=== PATIENT | female | born 1995 | race Caucasian/White ===

== ENCOUNTER 2017-09-25 11:24 | Emergency (ER) | payer OTHER ==
[2017-09-25] MEDS ORDERED: ACETAMINOPHEN TAB 500 MG TAB PO STA (12:05)
[2017-09-25] MEDS ORDERED: PHENAZOPYRIDINE 200 MG TAB PO STA (12:06)
[2017-09-25] MEDS ORDERED: ONDANSETRON 4 MG/2 ML VIAL IVP STA (12:06)
--- NOTE | 2017-09-25 12:16 | ED ---
General Adult HPI - General Chief complaint: Abdominal Pain Stated complaint: poss uti Time Seen by Provider: 09/25/17 11:46 Source: patient Mode of arrival: ambulatory Limitations: no limitations - History of Present Illness Initial comments: This is a 21-year-old female no past medical history who presents emergency department for generalized body aches, fevers, chills, urinary frequency and dysuria and lower back pain for the last week. The patient states that the symptoms have progressed and gotten worse. She states that now she is developing fevers and decided come emergency department. She does not have a history of urinary tract infection. She denies any vaginal bleeding or discharge. States that she is sexually active however does not of a history of sexually transmitted diseases. She denies any cough or shortness of breath. No runny nose or sore throat. No other acute complaints. - Related Data Previous Rx's Medication Instructions Recorded Sulfamethox-Tmp 800-160Mg [Bactrim 1 tab PO Q12HR #14 tab 09/25/17 DS 800-160 mg] Allergies Allergy/AdvReac Type Severity Reaction Status Date / Time No Known Allergies Allergy Verified 09/25/17 12:22 Review of Systems ROS Statement: Those systems with pertinent positive or pertinent negative responses have been documented in the HPI. ROS Other: All systems not noted in ROS Statement are negative. Past Medical History Past Medical History: No Reported History History of Any Multi-Drug Resistant Organisms: None Reported Past Surgical History: No Surgical Hx Reported Past Anesthesia/Blood Transfusion Reactions: No Reported Reaction Past Psychological History: ADD/ADHD, Anxiety Smoking Status: Current some day smoker Past Drug Use History: None Reported - Past Family History Mother Family Medical History: Hypertension General Exam - General Exam Comments Initial Comments: Constitutional: Awake alert Appears comfortable Head: Normocephalic atraumatic Eyes: no conjunctival injection No scleral icterus EOMI ENT: TMs clear bilaterally, oropharynx is nonerythematous Neck: No JVD Supple Heart: Regular rate rhythm normal S1-S2 no murmurs Lungs: Clear to auscultation bilaterally No wheezing No rales Abdomen: Soft nondistended there is tenderness to palpation in the suprapubic region without rebound or guarding, no CVA tenderness Extremities: Non edematous DP pulses intact Radial pulses intact Neuro: A&Ox3 No focal neurologic deficits Psych: Appropriate mood and affect Limitations: no limitations Course Vital Signs 09/25/17 09/25/17 11:35 13:15 Temperature 101.5 F H 99.7 F H Pulse Rate 122 H 85 Respiratory 20 16 Rate Blood Pressure 97/44 112/57 O2 Sat by Pulse 95 96 Oximetry Medical Decision Making - Medical Decision Making Is a 21-year-old female came in for dysuria and fever. The patient was found have a urinary tract infection. Urine culture was sent. Given 1 dose of Rocephin in the emergency department. The rest her blood work was unremarkable. Patient felt much improved after medications given in the ER. The patient will be discharged home on Bactrim twice a day for 7 days. Needs close follow-up with her primary doctor. If she has worsening or recurring symptoms she was instructed to return the emergency Department. All questions were answered. - Lab Data Result diagrams: 09/25/17 12:20 09/25/17 12:20 Lab Results 09/25/17 09/25/17 09/25/17 Range/Units 12:05 12:05 12:20 WBC (4.0-11.0) k/uL RBC (3.80-5.40) m/uL Hgb (11.4-16.0) gm/dL Hct (34.0-46.0) % MCV (80.0-100.0) fL MCH (25.0-35.0) pg MCHC (31.0-37.0) g/dL RDW (11.5-15.5) % Plt Count (150-450) k/uL Neutrophils % % Lymphocytes % % Monocytes % % Eosinophils % % Basophils % % Neutrophils # (1.3-7.7) k/uL Lymphocytes # (1.0-4.8) k/uL Monocytes # (0-1.0) k/uL Eosinophils # (0-0.7) k/uL Basophils # (0-0.2) k/uL Sodium (137-145) mmol/L Potassium (3.5-5.1) mmol/L Chloride (98-107) mmol/L Carbon Dioxide (22-30) mmol/L Anion Gap mmol/L BUN (7-17) mg/dL Creatinine (0.52-1.04) mg/dL Est GFR (CKD-EPI)AfAm (>60 ml/min/1.73 sqM) Est GFR (CKD-EPI)NonAf (>60 ml/min/1.73 sqM) Glucose (74-99) mg/dL Plasma Lactic Acid [place] (0.7-2.0) mmol/L Calcium (8.4-10.2) mg/dL Total Bilirubin (0.2-1.3) mg/dL AST (14-36) U/L ALT (9-52) U/L Alkaline Phosphatase (38-126) U/L Total Protein (6.3-8.2) g/dL Albumin (3.5-5.0) g/dL Urine Color Yellow Urine Appearance Turbid H (Clear) Urine pH 5.5 (5.0-8.0) Ur Specific [place] 1.020 (1.001-1.035) Urine Protein 3+ H (Negative) Urine Glucose (UA) Negative (Negative) Urine Ketones 1+ H (Negative) Urine Blood Moderate H (Negative) Urine Nitrite Positive H (Negative) Urine Bilirubin Negative (Negative) Urine Urobilinogen <2.0 (<2.0) mg/dL Ur Leukocyte Esterase Large H (Negative) Urine RBC 118 H (0-5) /hpf Urine WBC >182 H (0-5) /hpf Urine WBC Clumps Many H (None) /hpf Urine Bacteria Rare H (None) /hpf Urine Mucus Many H (None) /hpf Urine HCG, Qual Not Detected (Not Detectd) Influenza Type A RNA Not Detected (Not Detectd) Influenza Type B (PCR) Not Detected (Not Detectd) 09/25/17 09/25/17 09/25/17 Range/Units 12:20 12:20 12:20 WBC 11.0 (4.0-11.0) k/uL RBC 4.33 (3.80-5.40) m/uL Hgb 12.3 (11.4-16.0) gm/dL Hct 35.1 (34.0-46.0) % MCV 81.2 (80.0-100.0) fL MCH 28.3 (25.0-35.0) pg MCHC 34.9 (31.0-37.0) g/dL RDW 12.6 (11.5-15.5) % Plt Count 230 (150-450) k/uL Neutrophils % 94 % Lymphocytes % 2 % Monocytes % 3 % Eosinophils % 1 % Basophils % 0 % Neutrophils # 10.3 H (1.3-7.7) k/uL Lymphocytes # 0.2 L (1.0-4.8) k/uL Monocytes # 0.3 (0-1.0) k/uL Eosinophils # 0.1 (0-0.7) k/uL Basophils # 0.0 (0-0.2) k/uL Sodium 141 (137-145) mmol/L Potassium 4.1 (3.5-5.1) mmol/L Chloride 103 (98-107) mmol/L Carbon Dioxide 23 (22-30) mmol/L Anion Gap 15 mmol/L BUN 12 (7-17) mg/dL Creatinine 0.70 (0.52-1.04) mg/dL Est GFR (CKD-EPI)AfAm >90 (>60 ml/min/1.73 sqM) Est GFR (CKD-EPI)NonAf >90 (>60 ml/min/1.73 sqM) Glucose 127 H (74-99) mg/dL Plasma Lactic Acid [place] 1.3 (0.7-2.0) mmol/L Calcium 9.4 (8.4-10.2) mg/dL Total Bilirubin 0.9 (0.2-1.3) mg/dL AST 16 (14-36) U/L ALT 17 (9-52) U/L Alkaline Phosphatase 67 (38-126) U/L Total Protein 6.8 (6.3-8.2) g/dL Albumin 3.9 (3.5-5.0) g/dL Urine Color Urine Appearance (Clear) Urine pH (5.0-8.0) Ur Specific [place] (1.001-1.035) Urine Protein (Negative) Urine Glucose (UA) (Negative) Urine Ketones (Negative) Urine Blood (Negative) Urine Nitrite (Negative) Urine Bilirubin (Negative) Urine Urobilinogen (<2.0) mg/dL Ur Leukocyte Esterase (Negative) Urine RBC (0-5) /hpf Urine WBC (0-5) /hpf Urine WBC Clumps (None) /hpf Urine Bacteria (None) /hpf Urine Mucus (None) /hpf Urine HCG, Qual (Not Detectd) Influenza Type A RNA (Not Detectd) Influenza Type B (PCR) (Not Detectd) Disposition Clinical Impression: UTI (urinary tract infection) Disposition: HOME SELF-CARE Condition: Stable Instructions: Urinary Tract Infection in Women (ED) Prescriptions: Sulfamethox-Tmp 800-160Mg [Bactrim DS 800-160 mg] 1 tab PO Q12HR #14 tab Referrals: Carlo Zamora DO [Primary Care Provider] - 1-2 days
[2017-09-25 12:26] LABS: Appearance,Urine Turbid (Clear); Bacteria,Urine Rare /hpf; Bilirubin,Urine Negative (Negative); Blood,Urine Moderate (Negative); Color,Urine Yellow; Glucose,Urine (UA) Negative (Negative); Ketones,Urine 1+ (Negative); Leukocyte Esterase,Urine Large (Negative); Mucus,Urine Many /hpf; Nitrite,Urine Positive (Negative); PH, Urine 5.5 (5.0-8.0); Protein,Urine 3+ (Negative); RBC,Urine 118 /hpf (0-5); Urobilinogen,Urine <2.0 mg/dL (<2.0); WBC,Urine >182 /hpf (0-5)
[2017-09-25 12:34] LABS: Basophils % (A) 0 %; Eosinophils # (A) 0.1 k/uL (0-0.7); Eosinophils % (A) 1 %; HCT 35.1 % (34.0-46.0); HGB 12.3 gm/dL (11.4-16.0); Lymphocytes # (A) 0.2 k/uL (1.0-4.8); Lymphocytes % (A) 2 %; MCH 28.3 pg (25.0-35.0); MCHC 34.9 g/dL (31.0-37.0); MCV 81.2 fL (80.0-100.0); Monocytes # (A) 0.3 k/uL (0-1.0); Monocytes % (A) 3 %; Neutrophils # (A) 10.3 k/uL (1.3-7.7); Neutrophils % (A) 94 %; Platelet Count 230 k/uL (150-450); RBC 4.33 m/uL (3.80-5.40); RDW 12.6 % (11.5-15.5)
[2017-09-25] MEDS: SODIUM CHLORIDE 0.9% 500 ML IV SCH ×2 (12:34→13:11)
[2017-09-25 12:42] LABS: AST 16 U/L (14-36); Albumin 3.9 g/dL (3.5-5.0); Alkaline Phosphatase 67 U/L (38-126); Anion Gap 15 mmol/L; Blood Urea Nitrogen 12 mg/dL (7-17); Calcium 9.4 mg/dL (8.4-10.2); Carbon Dioxide 23 mmol/L (22-30); Chloride 103 mmol/L (98-107); Glucose 127 mg/dL (74-99); Potassium 4.1 mmol/L (3.5-5.1); Sodium 141 mmol/L (137-145); Total Bilirubin 0.9 mg/dL (0.2-1.3); Total Protein 6.8 g/dL (6.3-8.2)
[2017-09-25 12:43] LABS: ALT 17 U/L (9-52)
[2017-09-25] MEDS ORDERED: cefTRIAXone IN SWFI 1,000 MG/10 ML SYRINGE IVP STA (12:52)
[2017-09-25 13:16] VITALS: BP 112/57; PULSE 85; RESP 16; TEMP 99.7
== END 2017-09-25 13:51 | disposition home or self-care (01) ==
LOC: EC 11:24
DX: N39.0 Urinary tract infection, site not specified (principal); F17.200 Nicotine dependence, unspecified, uncomplicated
CPT/HCPCS: 99284; 96374; 96375; 96361; 36415; 80053; 83605; 85025; 81001; 81025; 87040; 87086; 87077; 87186; 87502; J2405; J0696

== ENCOUNTER → 2018-02-25 | Day surgery (SDC) | payer OTHER ==
[2018-02-23 13:58] VITALS: BMI 24.7
[~2018-02-25] MED LIST: DEXAMETHASONE SOD PHOSPHATE 10 MG/ML 1 ML VIAL IV ONE; HYDROcodone/APAP 5-325MG 1 EACH TAB PO PRN; HYDROmorphone 1 MG/ML 1 ML SYRINGE IVP PRN; LACTATED RINGERS 1,000 ML IV SCH; LIDOCAINE 1% 20 ML VIAL (10MG/ML) FOR IV START INTRADERMA ONE; LIDOCAINE 1% INJ 10MG/ML (20 ML MDV) ONE; MIDAZOLAM 2 MG/2 ML VIAL IV PRN; MIDAZOLAM 2 MG/2 ML VIAL ONE; ONDANSETRON 4 MG/2 ML VIAL IVP ONE; ONDANSETRON 4 MG/2 ML VIAL IVP PRN; PROPOFOL 10 MG/ML 20 ML VIAL IV ONE; ROPIVACAINE 5 MG/ML 30 ML VIAL MISCELLANE ONE; SCOPOLAMINE 1.5MG/72HR PATCH TRANSDERM ONE; SUCCINYLCHOLINE CHLORIDE 100 MG/5 ML SYR IV ONE; ceFAZolin IN SWFI 2 GM/20 ML SYRINGE IVP ONE; fentaNYL (PF) 50 MCG/ML 2 ML AMP IV PRN; fentaNYL (PF) 50 MCG/ML 2 ML AMP ONE
--- NOTE | 2018-02-25 14:00 | P.OP ---
Date of Procedure: 02/25/18 Preoperative Diagnosis: 1. Right accessory navicular Postoperative Diagnosis: Same Procedure(s) Performed: 1. Excision of right accessory navicular bone, right 2. Repair of posterior tibial tendon to bone, right Anesthesia: VIRGIL Surgeon: Ortega Aguilar Line Out Worker #1: Anup Salazar Estimated Blood Loss (ml): 5 IV fluids (ml): 500 Pathology: none sent Condition: stable Disposition: PACU Indications for Procedure: The patient is a previously healthy 22-year-old female who presented to my office with a painful bump on the inside of her foot. Her clinical exam and x- rays were consistent with an accessory navicular. An MRI was obtained. We discussed continued nonsurgical treatment versus surgery. We discussed excision and posterior tibial tendon repair versus open reduction and screw fixation across the synchondrosis. Since the patient's main complaint is the bump on the inner aspect of her foot she requested an excision. We discussed potential risks and Indications of surgery including but not limited to risk of anesthesia, risk of superficial infection, risk of deep infection, risk of delayed wound healing, risk of damage to local blood vessel or nerves, risk of intraoperative fracture, risk of postoperative fracture, risk of posterior tibial tendon repair failure, risk of progressive flatfoot deformity, risk of chronic pain, risk of chronic swelling, risk of generalized to satisfaction surgery, risk of need for further surgery, DVT, PE, and possibly loss of life or limb. The patient and her mom provided their verbal and written consent to go forward with surgery. Description of Procedure: The patient was identified in preoperative holding and the correct right leg was marked with my initials. I reviewed the consent form with the patient and her mom. All their questions were answered. The patient was then brought back to the operating room by anesthesia. She was positioned on the or table where a general anesthetic and preoperative antibiotics were administered. A tourniquet was applied to the proximal aspect of the right leg. All bony prominences were well-padded. Posterior and surgery timeout was performed identifying the correct patient, operative extremity, and procedure. The patient's leg was then elevated, exsanguinated with an Esmarch bandage, and the tourniquet was inflated to 250 mmHg. I began by outlining an incision over the distal posterior tibial tendon to the level of the navicular tuberosity. Skin incision was made a scalpel and dissection was carried down to the posterior tibial tendon sheath which was opened sharply. The synchondrosis between the accessory navicular and navicular tuberosity was identified with fluoroscopy. An osteotome was used to develop the interval. The accessory navicular was then sharply removed from the posterior tibial tendon. The plantar fibers of the posterior tibial tendon remained intact to the navicular body. Once the accessory navicular been excised a 3.5 mm suture anchor was placed into the navicular body using fluoroscopy to verify the position of the suture anchor was extra-articular. The suture anchor was then gently tapped and screwed into place. The posterior tibial tendon was then repaired down to bone while an pathologist assistant held the foot in slight inversion. The posterior tibial tendon was nicely reapproximated with a jarvis repair. Final fluoroscopic images were taken. The wound was copiously irrigated. The sheath was closed with a running 0 Vicryl. The deep subcu was reapproximated using 3-0 Monocryl. The skin was closed with 3-0 nylon horizontal mattress stitches. Tendon also Percent Marcaine was injected around the incision. The tourniquet was let down. A sterile dressing consisting of Betadine soaked Adaptic, 4 x 4, and web roll was applied. The patient was then placed in a well-padded bulky Angel splint with the ankle in neutral. The patient was then awoken from her anesthetic, transferred to a gurney, and brought to PACU without procedure well. Anup Salazar PA-C was required is a skilled pathologist assistant for patient positioning, surgical exposure, closure of wound, and application of splint.
[2018-02-25 14:23] VITALS: TEMP 97.3
--- NOTE | 2018-02-25 16:36 | XR ---
EXAMINATION TYPE: XR ankle limited RT, [place] guidance operating room DATE OF EXAM: 02/25/2018 COMPARISON: NONE HISTORY: 22-year-old female assess for navicular right ankle FINDINGS: 2 images of the ankle/hindfoot showing some surgical material at the medial navicular. FLUOROSCOPY Fluoroscopy time of 10 seconds was used during foot intervention. 2 image/s document/s the procedure . IMPRESSION: Fluoroscopy as above.
[2018-02-25 17:09] VITALS: BP 111/69; PULSE 83; RESP 18
== END | disposition home or self-care (01) ==
LOC: OR 10:55
PROVIDERS: ATTEND Orthopaedic Surgery
DX: Q74.2 Other congenital malformations of lower limb(s), including pelvic girdle (principal)
CPT/HCPCS: 73600; 28238; J2250; J1100; J2405; J2001; J3010; J2795; J0330; J2704; J0690; 81025

== ENCOUNTER 2021-01-25 23:06 | Emergency (ER) | payer OTHER ==
[2021-01-25 23:09] VITALS: RESP 18; TEMP 100.2
[2021-01-25] MEDS ORDERED: ONDANSETRON 4 MG/2 ML VIAL IVP STA (23:20)
[2021-01-25] MEDS ORDERED: SODIUM CHLORIDE 0.9% 1,000 ML IV STA (23:20)
[2021-01-25] MEDS ORDERED: IBUPROFEN 600 MG TAB PO STA (23:21)
[2021-01-25 23:48] LABS: Basophils % (A) 0 %; Eosinophils # (A) 0.2 k/uL (0-0.7); Eosinophils % (A) 1 %; HCT 37.7 % (34.0-46.0); Lymphocytes # (A) 0.8 k/uL (1.0-4.8); Lymphocytes % (A) 6 %; MCH 30.1 pg (25.0-35.0); MCHC 34.5 g/dL (31.0-37.0); MCV 87.2 fL (80.0-100.0); Mean Platelet Volume 7.7; Monocytes # (A) 0.9 k/uL (0-1.0); Monocytes % (A) 6 %; Neutrophils # (A) 12.2 k/uL (1.3-7.7); Neutrophils % (A) 86 %; Platelet Count 205 k/uL (150-450); RBC 4.32 m/uL (3.80-5.40); RDW 12.3 % (11.5-15.5); WBC 14.2 k/uL (3.8-10.6)
[2021-01-25 23:57] LABS: ALT 18 U/L (4-34); AST 25 U/L (14-36); African American GFR (CKD) >90 (>60 ml/min/1.73 sqM); Alkaline Phosphatase 79 U/L (38-126); Amylase 35 U/L (30-110); Anion Gap 10 mmol/L; Blood Urea Nitrogen 7 mg/dL (7-17); Calcium 9.1 mg/dL (8.4-10.2); Carbon Dioxide 20 mmol/L (22-30); Chloride 104 mmol/L (98-107); Glucose 115 mg/dL (74-99); Lipase <10 U/L (23-300); Non-African American GFR(CKD) >90 (>60 ml/min/1.73 sqM); Sodium 134 mmol/L (137-145); Total Bilirubin 0.7 mg/dL (0.2-1.3); Total Protein 6.8 g/dL (6.3-8.2)
[2021-01-26 00:11] LABS: Appearance,Urine Turbid (Clear); Bacteria,Urine Rare /hpf; Bilirubin,Urine Negative (Negative); Blood,Urine Small (Negative); Color,Urine Yellow; Glucose,Urine (UA) Negative (Negative); Ketones,Urine 1+ (Negative); Leukocyte Esterase,Urine Large (Negative); Mucus,Urine Few /hpf; Nitrite,Urine Positive (Negative); PH, Urine 6.5 (5.0-8.0); Protein,Urine 2+ (Negative); RBC,Urine 32 /hpf (0-5); Specific Gravity,Urine 1.016 (1.001-1.035); Squamous Epithelial Cell,Urine 2 /hpf (0-4); WBC,Urine >182 /hpf (0-5)
--- NOTE | 2021-01-26 00:51 | CT ---
EXAMINATION TYPE: CT abdomen pelvis w con DATE OF EXAM: 01/26/2021 COMPARISON: None HISTORY: Flank pain CT DLP: 1252.2 mGycm Automated exposure control for dose reduction was used. CONTRAST: Performed with IV Contrast, patient injected with 100 mL of Isovue 300. Images obtained from the diaphragm to the floor the pelvis with IV contrast. Lung bases are clear. There is no pleural effusion. Heart size is normal. There is no pericardial eff usion. Liver spleen stomach pancreas gallbladder appear normal. The bile ducts are not dilated. There is small area of decreased enhancement upper pole left kidney. Delayed images show normal renal excr etion. The kidneys have normal size and contour. There is no hydronephrosis. Ureters are not dilated. Bladder distends smoothly. There is no inguinal hernia. Appendix appears normal. There is no free fl uid in the pelvis. There is no evidence of a pelvic mass. Uterus is retroverted. Lumbar vertebra have normal spacing and alignment. Posterior elements are intact. There is no compression fracture. The b david pelvis is intact. The hip joints are intact. There is no hip dysplasia. There is no mesenteric edema. There is no ascites or free air. There is no bowel obstruction. IMPRESSION: There is 2 cm area of decreased enhancement upper pole left kidney. This could be focal pyelonephriti s. No renal obstruction. Normal appendix.
[2021-01-26] MEDS ORDERED: cefTRIAXone IN SWFI 1,000 MG/10 ML SYRINGE IVP STA (00:53)
--- NOTE | 2021-01-26 00:53 | ED ---
Female Urogenital HPI - General Chief complaint: Urogenital Stated complaint: Poss UTI Time Seen by Provider: 01/25/21 23:12 Source: patient, RN notes reviewed Mode of arrival: ambulatory Limitations: no limitations - History of Present Illness Initial comments: Patient is a 25-year-old female that presents to the emergency department complaining of urinary frequency dysuria and a mild fever with some nausea and vomiting. She notes that she has had small bouts of emesis but unsure of the amount. She notes that she does have a history of UTIs and kidney infections. She notes this feels similar. She notes that this is been going on for 1-2 days. She did appear to be in some mild discomfort while sitting in bed during the exam interview. She denied taking any Tylenol or Motrin at home for fever. She was otherwise a well-appearing 25-year-old female. She denied any chest pain shortness of breath headache diarrhea constipation fatigue. Last Menstrual Period: 01/20/21 - Related Data Previous Rx's Medication Instructions Recorded Aspirin 325 mg PO BID #28 tab 02/25/18 Docusate [Colace] 100 mg PO BID #28 capsule 02/25/18 Docusate [Colace] 100 mg PO DAILY #20 capsule 02/25/18 HYDROcodone/APAP 5-325MG [[place] 1 - 2 tab PO Q6HR PRN #40 tab 02/25/18 5-325] Ciprofloxacin HCl [Cipro] 500 mg PO Q12HR #20 tablet 01/26/21 Ondansetron Odt [Zofran Odt] 4 mg PO Q8HR PRN #10 tab 01/26/21 Allergies Allergy/AdvReac Type Severity Reaction Status Date / Time No Known Allergies Allergy Verified 01/25/21 23:09 Review of Systems ROS Statement: Those systems with pertinent positive or pertinent negative responses have been documented in the HPI. ROS Other: All systems not noted in ROS Statement are negative. Past Medical History Past Medical History: No Reported History History of Any Multi-Drug Resistant Organisms: None Reported Past Surgical History: No Surgical Hx Reported Past Anesthesia/Blood Transfusion Reactions: No Reported Reaction Additional Past Anesthesia/Blood Transfusion Reaction / Comment(s): no anesthesia Past Psychological History: ADD/ADHD, Anxiety Smoking Status: Current every day smoker Past Alcohol Use History: None Reported Past Drug Use History: None Reported - Past Family History Mother Family Medical History: Hypertension General Exam Limitations: no limitations General appearance: alert, in no apparent distress Head exam: Present: atraumatic, normocephalic, normal inspection Eye exam: Present: normal appearance, PERRL, EOMI. Absent: scleral icterus, conjunctival injection, periorbital swelling Neck exam: Present: normal inspection Respiratory exam: Present: normal lung sounds bilaterally. Absent: respiratory distress, wheezes, rales, rhonchi, stridor Cardiovascular Exam: Present: regular rate, normal rhythm, normal heart sounds. Absent: systolic murmur, diastolic murmur, rubs, gallop, clicks GI/Abdominal exam: Present: soft, normal bowel sounds. Absent: distended, tenderness, guarding, rebound, rigid Extremities exam: Present: normal inspection, full ROM, normal capillary refill. Absent: tenderness, pedal edema, joint swelling, calf tenderness Neurological exam: Present: alert, oriented X3 Psychiatric exam: Present: normal affect, normal mood Skin exam: Present: warm, dry, intact, normal color. Absent: rash Course Vital Signs 01/25/21 23:07 Temperature 100.2 F H Pulse Rate 106 H Respiratory 18 Rate Blood Pressure 118/78 O2 Sat by Pulse 98 Oximetry Medical Decision Making - Medical Decision Making 25-year-old female with urinary frequency dysuria and a fever with some nausea for 1-2 days. Labs, CT of the abdomen and pelvis, 1 L normal saline, 4 mg of Zofran, 600 mg of Motrin ordered. Labs: Leukocytosis at 14-1/2, urinalysis shows urinary tract infection with greater than 182 white blood cells. 1 g of Rocephin ordered. Computed tomography scan shows focal pyelonephritis. Case discussed with Dr. Longoria, patient discharge home with close follow-up to primary care. - Lab Data Result diagrams: 01/25/21 23:26 01/25/21 23:26 Lab Results 01/25/21 01/25/21 01/25/21 Range/Units 23:20 23:26 23:26 WBC 14.2 H (3.8-10.6) k/uL RBC 4.32 (3.80-5.40) m/uL Hgb 13.0 (11.4-16.0) gm/dL Hct 37.7 (34.0-46.0) % MCV 87.2 (80.0-100.0) fL MCH 30.1 (25.0-35.0) pg MCHC 34.5 (31.0-37.0) g/dL RDW 12.3 (11.5-15.5) % Plt Count 205 (150-450) k/uL MPV 7.7 Neutrophils % 86 % Lymphocytes % 6 % Monocytes % 6 % Eosinophils % 1 % Basophils % 0 % Neutrophils # 12.2 H (1.3-7.7) k/uL Lymphocytes # 0.8 L (1.0-4.8) k/uL Monocytes # 0.9 (0-1.0) k/uL Eosinophils # 0.2 (0-0.7) k/uL Basophils # 0.0 (0-0.2) k/uL Sodium (137-145) mmol/L Potassium (3.5-5.1) mmol/L Chloride (98-107) mmol/L Carbon Dioxide (22-30) mmol/L Anion Gap mmol/L BUN (7-17) mg/dL Creatinine (0.52-1.04) mg/dL Est GFR (CKD-EPI)AfAm (>60 ml/min/1.73 sqM) Est GFR (CKD-EPI)NonAf (>60 ml/min/1.73 sqM) Glucose (74-99) mg/dL Calcium (8.4-10.2) mg/dL Total Bilirubin (0.2-1.3) mg/dL AST (14-36) U/L ALT (4-34) U/L Alkaline Phosphatase (38-126) U/L Total Protein (6.3-8.2) g/dL Albumin (3.5-5.0) g/dL Amylase (30-110) U/L Lipase (23-300) U/L Urine Color Yellow Urine Appearance Turbid H (Clear) Urine pH 6.5 (5.0-8.0) Ur Specific [place] 1.016 (1.001-1.035) Urine Protein 2+ H (Negative) Urine Glucose (UA) Negative (Negative) Urine Ketones 1+ H (Negative) Urine Blood Small H (Negative) Urine Nitrite Positive H (Negative) Urine Bilirubin Negative (Negative) Urine Urobilinogen 2.0 (<2.0) mg/dL Ur Leukocyte Esterase Large H (Negative) Urine RBC 32 H (0-5) /hpf Urine WBC >182 H (0-5) /hpf Urine WBC Clumps Many H (None) /hpf Ur Squamous Epith Cells 2 (0-4) /hpf Urine Bacteria Rare H (None) /hpf Urine Mucus Few H (None) /hpf Urine HCG, Qual Not Detected (Not Detectd) 01/25/21 Range/Units 23:26 WBC (3.8-10.6) k/uL RBC (3.80-5.40) m/uL Hgb (11.4-16.0) gm/dL Hct (34.0-46.0) % MCV (80.0-100.0) fL MCH (25.0-35.0) pg MCHC (31.0-37.0) g/dL RDW (11.5-15.5) % Plt Count (150-450) k/uL MPV Neutrophils % % Lymphocytes % % Monocytes % % Eosinophils % % Basophils % % Neutrophils # (1.3-7.7) k/uL Lymphocytes # (1.0-4.8) k/uL Monocytes # (0-1.0) k/uL Eosinophils # (0-0.7) k/uL Basophils # (0-0.2) k/uL Sodium 134 L (137-145) mmol/L Potassium 4.0 (3.5-5.1) mmol/L Chloride 104 (98-107) mmol/L Carbon Dioxide 20 L (22-30) mmol/L Anion Gap 10 mmol/L BUN 7 (7-17) mg/dL Creatinine 0.62 (0.52-1.04) mg/dL Est GFR (CKD-EPI)AfAm >90 (>60 ml/min/1.73 sqM) Est GFR (CKD-EPI)NonAf >90 (>60 ml/min/1.73 sqM) Glucose 115 H (74-99) mg/dL Calcium 9.1 (8.4-10.2) mg/dL Total Bilirubin 0.7 (0.2-1.3) mg/dL AST 25 (14-36) U/L ALT 18 (4-34) U/L Alkaline Phosphatase 79 (38-126) U/L Total Protein 6.8 (6.3-8.2) g/dL Albumin 4.0 (3.5-5.0) g/dL Amylase 35 (30-110) U/L Lipase <10 L (23-300) U/L Urine Color Urine Appearance (Clear) Urine pH (5.0-8.0) Ur Specific [place] (1.001-1.035) Urine Protein (Negative) Urine Glucose (UA) (Negative) Urine Ketones (Negative) Urine Blood (Negative) Urine Nitrite (Negative) Urine Bilirubin (Negative) Urine Urobilinogen (<2.0) mg/dL Ur Leukocyte Esterase (Negative) Urine RBC (0-5) /hpf Urine WBC (0-5) /hpf Urine WBC Clumps (None) /hpf Ur Squamous Epith Cells (0-4) /hpf Urine Bacteria (None) /hpf Urine Mucus (None) /hpf Urine HCG, Qual (Not Detectd) - Radiology Data Radiology results: report reviewed, image reviewed CT of the abdomen and pelvis: There is a 2 cm area of decreased enhancement upper pole left kidney. This could be focal pyelonephritis. No renal obstruction. Normal appendix. Disposition Clinical Impression: Pyelonephritis Disposition: HOME SELF-CARE Condition: Stable Instructions (If sedation given, give patient instructions): Urinary Tract Infection in Women (ED) Additional Instructions: Please return to the Emergency Department if symptoms worsen or any other concerns. Take antibiotics as prescribed until complete. Take Tylenol and Motrin alternating every several hours for fever control. Take Zofran as prescribed. Follow-up with primary care in the next 1-2 days. Is patient prescribed a controlled substance at d/c from ED?: No Referrals: Carlo Zamora DO [Primary Care Provider] - 1-2 days Time of Disposition: 01:01
[2021-01-26] MEDS ORDERED: ACETAMINOPHEN TAB 325 MG TAB PO STA (01:01)
[2021-01-26 01:31] VITALS: BP 125/75; PULSE 62
== END 2021-01-26 01:30 | disposition home or self-care (01) ==
LOC: EC 23:06
DX: N12 Tubulo-interstitial nephritis, not specified as acute or chronic (principal); F17.200 Nicotine dependence, unspecified, uncomplicated; Z79.82 Long term (current) use of aspirin; Z79.891 Long term (current) use of opiate analgesic; Z79.899 Other long term (current) drug therapy
CPT/HCPCS: 36415; 80053; 82150; 83690; 85025; 81001; 81025; 87086; 74177; 99284; 96374; 96375; 96361; J2405; J0696; Q9967; 87077; 87186

== ENCOUNTER 2021-04-15 08:31 | Emergency (ER) | payer OTHER ==
[2021-04-15 08:37] VITALS: BP 106/63; PULSE 102; RESP 18; TEMP 98
--- NOTE | 2021-04-15 09:30 | XR ---
EXAMINATION TYPE: XR chest 2V DATE OF EXAM: 04/15/2021 COMPARISON: None HISTORY: 25-year-old female with cough and back pain TECHNIQUE: PA and lateral views FINDINGS: The cardiomediastinal silhouette, aorta, and pulmonary vasculature are within normal limits. There is some mild patchy left basilar opacity. No consolidation or pleural effusion otherwise seen. IMPRESSION: Mild patchy left basilar atelectasis versus early developing infiltrate/pneumonia. Clinically correla te.
--- NOTE | 2021-04-15 09:44 | ED ---
URI HPI - General Chief Complaint: Upper Respiratory Infection Stated Complaint: back pain & cough Time Seen by Provider: 04/15/21 08:42 Source: patient, RN notes reviewed Mode of arrival: ambulatory Limitations: no limitations - History of Present Illness Initial Comments: Patient is a 25-year-old female that presents to the emergency department compla ining of upper respiratory tract symptoms including a dry cough for the past several days. She states that her daughter recently got over an upper respiratory tract infection. Patient notes that she does also have seasonal ALLERGIES in the spring and fall. She notes that she does have moderate sinus nasal drainage. She denied any other issues or complaints at time. She was otherwise well-appearing. She denied chest pain shortness of breath headache nausea vomiting diarrhea constipation fever fatigue chills. - Related Data Home Medications Medication Instructions Recorded Confirmed D-Methorphan/PE/Acetaminophen 2 cap PO Q6H PRN 04/15/21 04/15/21 [Vicks Dayquil Liquicaps] Dm/Acetaminophen/Doxylamine [Vicks 2 cap PO Q6H PRN 04/15/21 04/15/21 Nyquil Liquicaps] Previous Rx's Medication Instructions Recorded Azithromycin [Zithromax Z-pack (6 0 mg PO DIRECTED #6 tab 04/15/21 tabs)] Allergies Allergy/AdvReac Type Severity Reaction Status Date / Time No Known Allergies Allergy Verified 04/15/21 10:01 Review of Systems ROS Statement: Those systems with pertinent positive or pertinent negative responses have been documented in the HPI. ROS Other: All systems not noted in ROS Statement are negative. Past Medical History Past Medical History: No Reported History History of Any Multi-Drug Resistant Organisms: None Reported Past Surgical History: Orthopedic Surgery Past Anesthesia/Blood Transfusion Reactions: No Reported Reaction Additional Past Anesthesia/Blood Transfusion Reaction / Comment(s): no anesthesia Past Psychological History: ADD/ADHD Smoking Status: Current every day smoker Past Alcohol Use History: None Reported Past Drug Use History: None Reported - Past Family History Mother Family Medical History: Hypertension General Exam Limitations: no limitations General appearance: alert, in no apparent distress, obese Head exam: Present: atraumatic, normocephalic, normal inspection Eye exam: Present: normal appearance, PERRL, EOMI. Absent: scleral icterus, conjunctival injection, periorbital swelling ENT exam: Present: normal exam, mucous membranes moist Neck exam: Present: normal inspection Respiratory exam: Present: normal lung sounds bilaterally. Absent: respiratory distress, wheezes, rales, rhonchi, stridor Cardiovascular Exam: Present: regular rate, normal rhythm, normal heart sounds. Absent: systolic murmur, diastolic murmur, rubs, gallop, clicks GI/Abdominal exam: Present: soft, normal bowel sounds. Absent: distended, tenderness, guarding, rebound, rigid Extremities exam: Present: normal inspection, full ROM, normal capillary refill. Absent: tenderness, pedal edema, joint swelling, calf tenderness Neurological exam: Present: alert, oriented X3 Psychiatric exam: Present: normal affect, normal mood Skin exam: Present: warm, dry, intact, normal color. Absent: rash Course Vital Signs 04/15/21 08:31 Temperature 98 F Pulse Rate 102 H Respiratory 18 Rate Blood Pressure 106/63 O2 Sat by Pulse 96 Oximetry Medical Decision Making - Medical Decision Making 25-year-old female with upper respiratory tract symptoms including cough congestion and nasal drainage. Cepheid 4 Plex, chest x-ray ordered. Chest x-ray: Mild patchy left basilar atelectasis versus early developing infiltrate/pneumonia. Cepheid 4 Plex negative. Patient most likely has community-acquired pneumonia. Antibiotics sent to pharmacy. Case discussed with Dr. Barragan, patient discharge home with follow-up primary care. - Lab Data Lab Results 04/15/21 Range/Units 08:58 Influenza Type A (PCR) Not Detected (Not Detectd) Influenza Type B (PCR) Not Detected (Not Detectd) RSV (PCR) Not Detected (Not Detectd) SARS-CoV-2 (PCR) Not Detected (Not Detectd) - Radiology Data Radiology results: report reviewed, image reviewed Chest x-ray: Mild patchy left basilar atelectasis versus early developing infiltrate/pneumonia. Disposition Clinical Impression: Community acquired pneumonia, Postnasal drip Disposition: HOME SELF-CARE Condition: Stable Instructions (If sedation given, give patient instructions): Upper Respiratory Infection (ED) Additional Instructions: Please return to the Emergency Department if symptoms worsen or any other concerns. Follow-up with primary care 1-2 days. Take antibiotics as prescribed until complete. Get plenty rest. Is patient prescribed a controlled substance at d/c from ED?: No Referrals: Carlo Zamora DO [Primary Care Provider] - 1-2 days Time of Disposition: 10:10
== END 2021-04-15 10:30 | disposition home or self-care (01) ==
LOC: EC 08:31
DX: J18.8 Other pneumonia, unspecified organism (principal); R09.82 Postnasal drip; F90.9 Attention-deficit hyperactivity disorder, unspecified type; F17.200 Nicotine dependence, unspecified, uncomplicated; Z20.822 Contact with and (suspected) exposure to COVID-19
CPT/HCPCS: 71046; 87636; 99283

== ENCOUNTER 2022-09-22 07:55 | Emergency (ER) | payer OTHER ==
[2022-09-22] MEDS ORDERED: METOCLOPRAMIDE 5 MG/ML 2 ML VIAL IVP STA (08:15)
[2022-09-22] MEDS ORDERED: diphenhydrAMINE 50 MG/ML 1 ML VIAL IVP STA (08:15)
[2022-09-22] MEDS ORDERED: SODIUM CHLORIDE 0.9% 2,000 ML IV STA (08:15)
[2022-09-22 08:30] VITALS: BP 124/68; PULSE 89; RESP 19; TEMP 98.1
[2022-09-22 08:33] LABS: Basophils % (A) 0 %; Eosinophils # (A) 0.2 k/uL (0-0.7); Eosinophils % (A) 2 %; HCT 37.4 % (34.0-46.0); HGB 13.2 gm/dL (11.4-16.0); Lymphocytes # (A) 1.1 k/uL (1.0-4.8); Lymphocytes % (A) 9 %; MCH 30.2 pg (25.0-35.0); MCHC 35.2 g/dL (31.0-37.0); MCV 85.7 fL (80.0-100.0); Mean Platelet Volume 7.2; Monocytes # (A) 0.3 k/uL (0-1.0); Monocytes % (A) 3 %; Neutrophils % (A) 85 %; Platelet Count 386 k/uL (150-450); RBC 4.37 m/uL (3.80-5.40); WBC 11.7 k/uL (3.8-10.6)
--- NOTE | 2022-09-22 08:41 | ED ---
General Adult HPI - General Stated complaint: vomiting Time Seen by Provider: 09/22/22 08:06 Source: patient, EMS, RN notes reviewed Mode of arrival: EMS Limitations: no limitations - History of Present Illness Initial comments: 26 -year-old female presents to the emergency Department chief complaint nausea vomiting. Patient states she is 13 weeks patient is A0 currently seen Dr. Fairbanks. Patient states that she was hospitalized was discharged states she was doing well up until last couple days started having recheck her current emesis. Patient denies any abdominal pain no vaginal bleeding or vaginal discharge. Patient states she is on an antihistamine and B6 states is not helping. Patient states she feels very dehydrated patient is tearful, state s she cannot tolerate this any longer. - Related Data Home Medications Medication Instructions Recorded Confirmed Pyridoxine HCl (Vitamin B6) 25 mg PO HS 09/22/22 09/22/22 [Pyridoxine HCl] diphenhydrAMINE [Benadryl] 50 mg PO HS 09/22/22 09/22/22 Previous Rx's Medication Instructions Recorded Ondansetron Odt [Zofran Odt] 4 mg PO Q8HR PRN #10 tab 09/22/22 Allergies Allergy/AdvReac Type Severity Reaction Status Date / Time No Known Allergies Allergy Verified 09/22/22 10:18 Review of Systems ROS Statement: Those systems with pertinent positive or pertinent negative responses have been documented in the HPI. ROS Other: All systems not noted in ROS Statement are negative. Past Medical History Past Medical History: No Reported History History of Any Multi-Drug Resistant Organisms: None Reported Past Surgical History: Orthopedic Surgery Additional Past Surgical History / Comment(s): rt ankle Past Anesthesia/Blood Transfusion Reactions: No Reported Reaction Additional Past Anesthesia/Blood Transfusion Reaction / Comment(s): no anesthesia Past Psychological History: ADD/ADHD Smoking Status: Former smoker Past Alcohol Use History: None Reported Past Drug Use History: None Reported - Past Family History Mother Family Medical History: Hypertension General Exam Limitations: no limitations General appearance: alert, in no apparent distress Head exam: Present: atraumatic, normocephalic, normal inspection Eye exam: Present: normal appearance, PERRL, EOMI. Absent: scleral icterus, conjunctival injection, periorbital swelling Respiratory exam: Present: normal lung sounds bilaterally. Absent: respiratory distress, wheezes, rales, rhonchi, stridor Cardiovascular Exam: Present: regular rate, normal rhythm, normal heart sounds. Absent: systolic murmur, diastolic murmur, rubs, gallop, clicks GI/Abdominal exam: Present: soft, normal bowel sounds. Absent: distended, tenderness, guarding, rebound, rigid Neurological exam: Present: alert Course Vital Signs 09/22/22 08:26 Temperature 98.1 F Pulse Rate 89 Respiratory 19 Rate Blood Pressure 124/68 O2 Sat by Pulse 99 Oximetry Medical Decision Making - Medical Decision Making Was pt. sent in by a medical professional or institution (, [facility], DOCTOR OF NATUROPATHIC MEDICINE, urgent care, hospital, or longterm...) When possible be specific @ -No Did you speak to anyone other than the patient for history (EMS, parent, family, police, friend...)? What history was obtained from this source @ -No Did you review nursing and triage notes (agree or disagree)? Why? @ -I reviewed and agree with nursing and triage notes Were old charts reviewed (outside hosp., previous admission, EMS record, old EKG, old radiological studies, urgent care reports/EKG's, longterm records)? Report findings @ -Review prior admission and laboratory studies Differential Diagnosis (chest pain, altered mental status, abdominal pain women, abdominal pain men, vaginal bleeding, weakness, fever, dyspnea, syncope, headache, dizziness, GI bleed, back pain, seizure, CVA, palpatations, mental health, musculoskeletal)? @ -Hyperemesis gravidarum, gastroenteritis EKG interpreted by me (3pts min.). @ -None X-rays interpreted by me (1pt min.). @ -None done CT interpreted by me (1pt min.). @ -None done U/S interpreted by me (1pt. min.). @ -None done What testing was considered but not performed or refused? (CT, X-rays, U/S, labs)? Why? @ -None What meds were considered but not given or refused? Why? @ -None Did you discuss the management of the patient with other professionals (professionals i.e. KENYATTA Madden, DOCTOR OF NATUROPATHIC MEDICINE, lab, RT, psych nurse, mental health social worker, mine development engineer, teacher, corporate responsibility officer, onsite case manager)? Give summary @ -No Was smoking cessation discussed for >3mins.? @ -No Was critical care preformed (if so, how long)? @ -No Were there social determinants of health that impacted care today? How? (Homelessness, low income, unemployed, alcoholism, drug addiction, transportation, low edu. Level, literacy, decrease access to med. care, penitentiary, rehab)? @ -No Was there de-escalation of care discussed even if they declined (Discuss DNR or withdrawal of care, Hospice)? DNR status @ -No What co-morbidities impacted this encounter? (DM, HTN, Smoking, COPD, CAD, Cancer, CVA, ARF, Chemo, Hep., AIDS, mental health diagnosis, sleep apnea, morbid obesity)? @ -None Was patient admitted / discharged? Hospital course, mention meds given and route, prescriptions, significant lab abnormalities, going to OR and other pertinent info. @ -Discharge patient was well hydrated, given antiemetics patient's symptoms are improving patient's medications patient for prior admission and medications given during her hospital stay by DIVISION OPERATIONS MANAGER for her nausea vomiting. Patient will follow-up in office return for any worsening changes symptoms. Undiagnosed new problem with uncertain prognosis? @ -No Drug Therapy requiring intensive monitoring for toxicity (Heparin, Nitro, Insulin, Cardizem)? @ -No Were any procedures done? @ -No Diagnosis/symptom? @ -Hyperemesis gravidarum Acute, or Chronic, or Acute on Chronic? @ -Acute Uncomplicated (without systemic symptoms) or Complicated (systemic symptoms)? @ -Uncomplicated Side effects of treatment? @ -No Exacerbation, Progression, or Severe Exacerbation? @ -No Poses a threat to life or bodily function? How? (Chest pain, [place], [place], pneumonia, PE, COPD, DKA, ARF, appy, cholecystitis, CVA, Diverticulitis, Homicidal, Suicida l, threat to staff... and all critical care pts) @ -No - Lab Data Result diagrams: 09/22/22 08:25 09/22/22 08:25 Lab Results 09/22/22 09/22/22 09/22/22 Range/Units 08:25 08:25 08:25 WBC 11.7 H (3.8-10.6) k/uL RBC 4.37 (3.80-5.40) m/uL Hgb 13.2 (11.4-16.0) gm/dL Hct 37.4 (34.0-46.0) % MCV 85.7 (80.0-100.0) fL MCH 30.2 (25.0-35.0) pg MCHC 35.2 (31.0-37.0) g/dL RDW 13.0 (11.5-15.5) % Plt Count 386 (150-450) k/uL MPV 7.2 Neutrophils % 85 % Lymphocytes % 9 % Monocytes % 3 % Eosinophils % 2 % Basophils % 0 % Neutrophils # 10.0 H (1.3-7.7) k/uL Lymphocytes # 1.1 (1.0-4.8) k/uL Monocytes # 0.3 (0-1.0) k/uL Eosinophils # 0.2 (0-0.7) k/uL Basophils # 0.0 (0-0.2) k/uL Sodium 135 L (137-145) mmol/L Potassium 3.7 (3.5-5.1) mmol/L Chloride 105 (98-107) mmol/L Carbon Dioxide 16 L (22-30) mmol/L Anion Gap 14 mmol/L BUN 6 L (7-17) mg/dL Creatinine 0.48 L (0.52-1.04) mg/dL Est GFR (CKD-EPI)AfAm >90 (>60 ml/min/1.73 sqM) Est GFR (CKD-EPI)NonAf >90 (>60 ml/min/1.73 sqM) Glucose 165 H (74-99) mg/dL Lactic Ac Sepsis Rflx Plasma Lactic Acid Zachariah 2.7 H* (0.7-2.0) mmol/L Calcium 9.5 (8.4-10.2) mg/dL Magnesium 1.9 (1.6-2.3) mg/dL Total Bilirubin 0.7 (0.2-1.3) mg/dL AST 23 (14-36) U/L ALT 33 (4-34) U/L Alkaline Phosphatase 74 (38-126) U/L Total Protein 7.1 (6.3-8.2) g/dL Albumin 4.2 (3.5-5.0) g/dL Lipase 30 (23-300) U/L Urine Color Urine Appearance (Clear) Urine pH (5.0-8.0) Ur Specific Preston (1.001-1.035) Urine Protein (Negative) Urine Glucose (UA) (Negative) Urine Ketones (Negative) Urine Blood (Negative) Urine Nitrite (Negative) Urine Bilirubin (Negative) Urine Urobilinogen (<2.0) mg/dL Ur Leukocyte Esterase (Negative) Urine RBC (0-5) /hpf Urine WBC (0-5) /hpf Ur Squamous Epith Cells (0-4) /hpf Urine Mucus (None) /hpf 09/22/22 09/22/22 Range/Units 09:13 11:21 WBC (3.8-10.6) k/uL RBC (3.80-5.40) m/uL Hgb (11.4-16.0) gm/dL Hct (34.0-46.0) % MCV (80.0-100.0) fL MCH (25.0-35.0) pg MCHC (31.0-37.0) g/dL RDW (11.5-15.5) % Plt Count (150-450) k/uL MPV Neutrophils % % Lymphocytes % % Monocytes % % Eosinophils % % Basophils % % Neutrophils # (1.3-7.7) k/uL Lymphocytes # (1.0-4.8) k/uL Monocytes # (0-1.0) k/uL Eosinophils # (0-0.7) k/uL Basophils # (0-0.2) k/uL Sodium (137-145) mmol/L Potassium (3.5-5.1) mmol/L Chloride (98-107) mmol/L Carbon Dioxide (22-30) mmol/L Anion Gap mmol/L BUN (7-17) mg/dL Creatinine (0.52-1.04) mg/dL Est GFR (CKD-EPI)AfAm (>60 ml/min/1.73 sqM) Est GFR (CKD-EPI)NonAf (>60 ml/min/1.73 sqM) Glucose (74-99) mg/dL Lactic Ac Sepsis Rflx Y Plasma Lactic Acid Zachariah (0.7-2.0) mmol/L Calcium (8.4-10.2) mg/dL Magnesium (1.6-2.3) mg/dL Total Bilirubin (0.2-1.3) mg/dL AST (14-36) U/L ALT (4-34) U/L Alkaline Phosphatase (38-126) U/L Total Protein (6.3-8.2) g/dL Albumin (3.5-5.0) g/dL Lipase (23-300) U/L Urine Color Yellow Urine Appearance Cloudy H (Clear) Urine pH 6.5 (5.0-8.0) Ur Specific Preston 1.030 (1.001-1.035) Urine Protein 1+ H (Negative) Urine Glucose (UA) Negative (Negative) Urine Ketones 4+ H (Negative) Urine Blood Negative (Negative) Urine Nitrite Negative (Negative) Urine Bilirubin Negative (Negative) Urine Urobilinogen 2.0 (<2.0) mg/dL Ur Leukocyte Esterase Small H (Negative) Urine RBC 2 (0-5) /hpf Urine WBC 4 (0-5) /hpf Ur Squamous Epith Cells 6 H (0-4) /hpf Urine Mucus Many H (None) /hpf Disposition Clinical Impression: Dehydration, Hyperemesis gravidarum Disposition: HOME SELF-CARE Condition: Stable Instructions (If sedation given, give patient instructions): Hyperemesis Gravidarum (ED) Additional Instructions: Please return to the Emergency Department if symptoms worsen or any other concerns. Prescriptions: Ondansetron Odt [Zofran Odt] 4 mg PO Q8HR PRN #10 tab PRN Reason: Nausea Is patient prescribed a controlled substance at d/c from ED?: No Referrals: Carlo Zamora DO [Primary Care Provider] - 1-2 days Time of Disposition: 12:06
[2022-09-22 08:46] LABS: ALT 33 U/L (4-34); AST 23 U/L (14-36); African American GFR (CKD) >90 (>60 ml/min/1.73 sqM); Albumin 4.2 g/dL (3.5-5.0); Alkaline Phosphatase 74 U/L (38-126); Anion Gap 14 mmol/L; Blood Urea Nitrogen 6 mg/dL (7-17); Calcium 9.5 mg/dL (8.4-10.2); Carbon Dioxide 16 mmol/L (22-30); Chloride 105 mmol/L (98-107); Glucose 165 mg/dL (74-99); Lipase 30 U/L (23-300); Magnesium 1.9 mg/dL (1.6-2.3); Non-African American GFR(CKD) >90 (>60 ml/min/1.73 sqM); Potassium 3.7 mmol/L (3.5-5.1); Sodium 135 mmol/L (137-145); Total Bilirubin 0.7 mg/dL (0.2-1.3); Total Protein 7.1 g/dL (6.3-8.2)
[2022-09-22] MEDS ORDERED: ONDANSETRON 4 MG/2 ML VIAL IVP STA (10:10)
[2022-09-22] MEDS ORDERED: SODIUM CHLORIDE 0.9% 500 ML 500 ML IV ONE (10:42)
[2022-09-22] MEDS ORDERED: DEXTROSE 5%-0.9% NACL 1,000 ML IV SCH (10:45)
[2022-09-22] MEDS ORDERED: PROCHLORPERAZINE INJ 10 MG/2 ML VIAL IVP STA (11:34)
[2022-09-22 12:00] LABS: Appearance,Urine Cloudy (Clear); Bilirubin,Urine Negative (Negative); Blood,Urine Negative (Negative); Color,Urine Yellow; Glucose,Urine (UA) Negative (Negative); Leukocyte Esterase,Urine Small (Negative); Mucus,Urine Many /hpf; Nitrite,Urine Negative (Negative); PH, Urine 6.5 (5.0-8.0); Protein,Urine 1+ (Negative); RBC,Urine 2 /hpf (0-5); Squamous Epithelial Cell,Urine 6 /hpf (0-4); WBC,Urine 4 /hpf (0-5)
[2022-09-22] MEDS ORDERED: SCOPOLAMINE 1 MG/72 HR PATCH TRANSDERM STA (12:07)
[2022-09-22] MEDS ORDERED: LIDOCAINE 5% PATCH TOPICAL STA (12:08)
[2022-09-22 12:18] LABS: Ketones,Urine 4+ (Negative)
== END 2022-09-22 12:40 | disposition home or self-care (01) ==
LOC: EC 07:55
DX: O21.1 Hyperemesis gravidarum with metabolic disturbance (principal); O99.281 Endocrine, nutritional and metabolic diseases complicating pregnancy, first trimester; E86.0 Dehydration; O99.351 Diseases of the nervous system complicating pregnancy, first trimester; F90.9 Attention-deficit hyperactivity disorder, unspecified type; Z87.891 Personal history of nicotine dependence; Z3A.13 13 weeks gestation of pregnancy
CPT/HCPCS: 36415; 80053; 83605; 83690; 83735; 85025; 81001; 99284; 96374; 96375 ×3; 96361 ×4; J1200; J0780; J2765; J2405

== ENCOUNTER 2022-09-24 07:58 | Emergency (ER) | payer OTHER ==
[2022-09-24 08:03] VITALS: RESP 20
[2022-09-24] MEDS ORDERED: SODIUM CHLORIDE 0.9% 1,000 ML IV STA (08:07)
--- NOTE | 2022-09-24 08:17 | ED ---
General Adult HPI - General Chief complaint: Nausea/Vomiting/Diarrhea Stated complaint: DEHYDRATION Time Seen by Provider: 09/24/22 08:04 Source: patient Mode of arrival: ambulatory Limitations: no limitations - History of Present Illness Initial comments: Dictation was produced using iPipeline dictation software. please excuse any grammatical, word or spelling errors. Chief Complaint: 26-year-old female presents to the emergency department again for nausea and vomiting in . History of Present Illness: 26-year-old female this is her fifth visit to the emergency department. She is currently approximately 13 or 14 weeks . She is well-known to emergency department. She states that she has been feeling nauseated and has had some nonbilious not vomiting emesis again. She contacted the on-call hot stick man, Dr. Young. She states she spoke with him personally and it was recommended her to come to the emergency department for IV fluids and further care. Patient does complain of episodic crampiness to the suprapubic area. She does have established care with HOSPITAL INSURANCE REPRESENTATIVE, Dr. Fairbanks. Earlier this month and she was admitted to the hospital for hyperemesis gravidarum. Denies any fever, chills or night sweats. No vaginal discharge or vaginal bleeding. The ROS documented in this emergency department record has been reviewed and confirmed by me. Those systems with pertinent positive or negative responses have been documented in the HPI. All other systems are other negative and/or noncontributory. PHYSICAL EXAM: General Impression: Alert and oriented x3, not in acute distress HEENT: Normocephalic atraumatic, extra-ocular movements intact, pupils equal and reactive to light bilaterally, mucous membranes moist. Cardiovascular: Heart regular rate and rhythm Chest: Able to complete full sentences, no retractions, no tachypnea Abdomen: abdomen soft, non-tender, non-distended, no organomegaly Musculoskeletal: Pulses present and equal in all extremities, no peripheral edema Motor: no focal deficits noted Neurological: CN II-XII grossly intact, no focal motor or sensory deficits noted Skin: Intact with no visualized rashes Psych: Normal affect and mood ED course: 26-year-old well-appearing female presents emergency department for the fifth time this month for nausea and vomiting of . Vital signs upon arrival are within acceptable limits. Chart review was performed. Prior progress notes and discharge summary was reviewed from previous admission from earlier this month. Appears that patient's presentation was complicated by community acquired pneumonia. Nursing notes and chart review was performed Was pt. sent in by a medical professional or institution (KENYATTA Madden, PATHOLOGY SUPERVISOR, urgent care, hospital, or assisted...) When possible be specific @ -Sent in per instruction by on-call HOSPITAL INSURANCE REPRESENTATIVE, Dr. Young Did you speak to anyone other than the patient for history (EMS, parent, family, police, friend...)? What history was obtained from this source @ -No Did you review nursing and triage notes (agree or disagree)? Why? @ -I reviewed and agree with nursing and triage notes Were old charts reviewed (outside hosp., previous admission, EMS record, old EKG, old radiological studies, urgent care reports/EKG's, assisted records)? Report findings @ -Prior HOSPITAL INSURANCE REPRESENTATIVE charts were reviewed Differential Diagnosis (chest pain, altered mental status, abdominal pain women, abdominal pain men, vaginal bleeding, musculoskeletal, weakness, fever, dyspnea, syncope, headache, dizziness, GI bleed, back pain, seizure, CVA, palpatations, mental health)? @ -Differential Abdominal Pain Women: Appendicitis, Cholecystitis, diverticulosis, ischemic bowel, pancreatitis, hepatitis, UTI, gastroenteritis, AAA, incarcerated hernia, bowel obstruction, constipation, inflammatory bowel, hepatitis, peptic ulcer disease, splenic infarction, perforated viscus, vulvitis, ovarian torsion, PID, kidney stone, placenta abruption, this is not meant to be an all-inclusive list EKG interpreted by me (3pts min.). @ -None done X-rays interpreted by me (1pt min.). @ -None done CT interpreted by me (1pt min.). @ -None done U/S interpreted by me (1pt. min.). @ -Intrauterine What testing was considered but not performed or refused? (CT, X-rays, U/S, labs)? Why? @ -None What meds were considered but not given or refused? Why? @ -None Did you discuss the management of the patient with other professionals (professionals i.e. KENYATTA Madden, PATHOLOGY SUPERVISOR, lab, RT, psych nurse, social media assistant, community living instructor, teacher, aviation safety officer, caser shoe parts)? Give summary @ -No Was smoking cessation discussed for >3mins.? @ -No Was critical care preformed (if so, how long)? @ -No Were there social determinants of health that impacted care today? How? (Homelessness, low income, unemployed, alcoholism, drug addiction, transportation, low edu. Level, literacy, decrease access to med. care, care home, rehab)? @ -No Was there de-escalation of care discussed even if they declined (Discuss DNR or withdrawal of care, Hospice)? DNR status @ -No What co-morbidities impacted this encounter? (DM, HTN, Smoking, COPD, CAD, Cancer, CVA, ARF, Chemo, Hep., AIDS, mental health diagnosis, sleep apnea, morbid obesity)? @ -None Was patient admitted / discharged? Hospital course, mention meds given and route, prescriptions, significant lab abnormalities, going to OR and other pertinent info. @ -26 Year-old female presents to the emergency department again for nausea and vomiting associated with . Patient is well-appearing at bedside. Laboratory evaluation is unremarkable. Urinalysis shows 4+ ketones. Patient given IV fluids. Patient is well-appearing and tolerating oral intake at the bedside. Patient with discharge. She is told to follow closely with her HOSPITAL INSURANCE REPRESENTATIVE for outpatient management of her nausea. Undiagnosed new problem with uncertain prognosis? @ -No Drug Therapy requiring intensive monitoring for toxicity (Heparin, Nitro, Insulin, Cardizem)? @ -No Were any procedures done? @ -No Diagnosis/symptom? Acute, or Chronic, or Acute on Chronic? Uncomplicated (without systemic symptoms) or Complicated (systemic symptoms)? @ -1. Acute on chronic nausea and vomiting in Side effects of treatment? @ -No Exacerbation, Progression, or Severe Exacerbation? @ -No Poses a threat to life or bodily function? How? (Chest pain, [place], [place], pneumonia, PE, COPD, DKA, ARF, appy, cholecystitis, CVA, Diverticulitis, Homicidal, Suicidal, threat to staff... and all critical care pts) @ -yes - Related Data Home Medications Medication Instructions Recorded Confirmed Pyridoxine HCl (Vitamin B6) 25 mg PO HS 09/22/22 09/24/22 [Pyridoxine HCl] diphenhydrAMINE [Benadryl] 50 mg PO HS 09/22/22 09/24/22 Previous Rx's Medication Instructions Recorded Ondansetron Odt [Zofran Odt] 4 mg PO Q8HR PRN #10 tab 09/22/22 Allergies Allergy/AdvReac Type Severity Reaction Status Date / Time No Known Allergies Allergy Verified 09/24/22 09:13 Review of Systems ROS Statement: Those systems with pertinent positive or pertinent negative responses have been documented in the HPI. ROS Other: All systems not noted in ROS Statement are negative. Past Medical History Past Medical History: No Reported History History of Any Multi-Drug Resistant Organisms: None Reported Past Surgical History: Orthopedic Surgery Additional Past Surgical History / Comment(s): rt ankle Past Anesthesia/Blood Transfusion Reactions: No Reported Reaction Additional Past Anesthesia/Blood Transfusion Reaction / Comment(s): no an esthesia Past Psychological History: ADD/ADHD Smoking Status: Former smoker Past Alcohol Use History: None Reported Past Drug Use History: None Reported - Past Family History Mother Family Medical History: Hypertension General Exam Limitations: no limitations Course Vital Signs 09/24/22 08:00 Temperature 98 F Pulse Rate 82 Respiratory 20 Rate Blood Pressure 129/89 O2 Sat by Pulse 99 Oximetry Medical Decision Making - Lab Data Result diagrams: 09/24/22 08:21 09/24/22 08:21 Lab Results 09/24/22 09/24/22 09/24/22 Range/Units 08:21 08:21 09:06 WBC 11.4 H (3.8-10.6) k/uL RBC 3.94 (3.80-5.40) m/uL Hgb 11.8 (11.4-16.0) gm/dL Hct 34.4 (34.0-46.0) % MCV 87.3 (80.0-100.0) fL MCH 30.1 (25.0-35.0) pg MCHC 34.5 (31.0-37.0) g/dL RDW 13.3 (11.5-15.5) % Plt Count 330 (150-450) k/uL MPV 7.6 Neutrophils % 85 % Lymphocytes % 10 % Monocytes % 4 % Eosinophils % 0 % Basophils % 0 % Neutrophils # 9.7 H (1.3-7.7) k/uL Lymphocytes # 1.1 (1.0-4.8) k/uL Monocytes # 0.5 (0-1.0) k/uL Eosinophils # 0.1 (0-0.7) k/uL Basophils # 0.0 (0-0.2) k/uL Sodium 134 L (137-145) mmol/L Potassium 3.6 (3.5-5.1) mmol/L Chloride 106 (98-107) mmol/L Carbon Dioxide 22 (22-30) mmol/L Anion Gap 6 mmol/L BUN 3 L (7-17) mg/dL Creatinine 0.38 L (0.52-1.04) mg/dL Est GFR (CKD-EPI)AfAm >90 (>60 ml/min/1.73 sqM) Est GFR (CKD-EPI)NonAf >90 (>60 ml/min/1.73 sqM) Glucose 118 H (74-99) mg/dL Calcium 8.8 (8.4-10.2) mg/dL Total Bilirubin 0.5 (0.2-1.3) mg/dL AST 22 (14-36) U/L ALT 31 (4-34) U/L Alkaline Phosphatase 55 (38-126) U/L Total Protein 6.4 (6.3-8.2) g/dL Albumin 3.7 (3.5-5.0) g/dL Urine Color Yellow Urine Appearance Cloudy H (Clear) Urine pH 6.0 (5.0-8.0) Ur Specific [place] 1.024 (1.001-1.035) Urine Protein 1+ H (Negative) Urine Glucose (UA) Negative (Negative) Urine Ketones 4+ H (Negative) Urine Blood Negative (Negative) Urine Nitrite Negative (Negative) Urine Bilirubin Negative (Negative) Urine Urobilinogen 3.0 (<2.0) mg/dL Ur Leukocyte Esterase Small H (Negative) Urine WBC 4 (0-5) /hpf Ur Squamous Epith Cells 6 H (0-4) /hpf Urine Mucus Many H (None) /hpf Disposition Clinical Impression: Nausea and vomiting during Disposition: HOME SELF-CARE Condition: Fair Instructions (If sedation given, give patient instructions): Acute Nausea and Vomiting (ED) Is patient prescribed a controlled substance at d/c from ED?: No Referrals: Jada Selby MD [STAFF PHYSICIAN] - 1-2 days Time of Disposition: 10:20
[2022-09-24 08:40] LABS: Basophils % (A) 0 %; Eosinophils # (A) 0.1 k/uL (0-0.7); Eosinophils % (A) 0 %; HCT 34.4 % (34.0-46.0); HGB 11.8 gm/dL (11.4-16.0); Lymphocytes # (A) 1.1 k/uL (1.0-4.8); Lymphocytes % (A) 10 %; MCH 30.1 pg (25.0-35.0); MCHC 34.5 g/dL (31.0-37.0); MCV 87.3 fL (80.0-100.0); Mean Platelet Volume 7.6; Monocytes # (A) 0.5 k/uL (0-1.0); Monocytes % (A) 4 %; Neutrophils # (A) 9.7 k/uL (1.3-7.7); Neutrophils % (A) 85 %; Platelet Count 330 k/uL (150-450); RBC 3.94 m/uL (3.80-5.40); RDW 13.3 % (11.5-15.5); WBC 11.4 k/uL (3.8-10.6)
[2022-09-24 08:42] LABS: ALT 31 U/L (4-34); AST 22 U/L (14-36); African American GFR (CKD) >90 (>60 ml/min/1.73 sqM); Albumin 3.7 g/dL (3.5-5.0); Alkaline Phosphatase 55 U/L (38-126); Anion Gap 6 mmol/L; Blood Urea Nitrogen 3 mg/dL (7-17); Calcium 8.8 mg/dL (8.4-10.2); Carbon Dioxide 22 mmol/L (22-30); Chloride 106 mmol/L (98-107); Glucose 118 mg/dL (74-99); Non-African American GFR(CKD) >90 (>60 ml/min/1.73 sqM); Potassium 3.6 mmol/L (3.5-5.1); Sodium 134 mmol/L (137-145); Total Bilirubin 0.5 mg/dL (0.2-1.3); Total Protein 6.4 g/dL (6.3-8.2)
[2022-09-24 09:38] LABS: Appearance,Urine Cloudy (Clear); Bilirubin,Urine Negative (Negative); Blood,Urine Negative (Negative); Color,Urine Yellow; Glucose,Urine (UA) Negative (Negative); Ketones,Urine 4+ (Negative); Leukocyte Esterase,Urine Small (Negative); Mucus,Urine Many /hpf; Nitrite,Urine Negative (Negative); Protein,Urine 1+ (Negative); Specific Gravity,Urine 1.024 (1.001-1.035); Squamous Epithelial Cell,Urine 6 /hpf (0-4); WBC,Urine 4 /hpf (0-5)
--- NOTE | 2022-09-24 10:15 | US ---
EXAMINATION TYPE: US OB >= 14 wk fetus DATE OF EXAM: 09/24/2022 COMPARISON: US September 01, 2022 CLINICAL HISTORY: pelvic pain Pt states cramping and vomiting TECHNIQUE: Transabdominal (TA) GESTATIONAL AGE / DATING Physician Established: (13 weeks/3 days) EDC: 03/29/2023 Dates by LMP: (13 weeks/3 days) EDC: 03/29/2023 Dates by First Scan: (14 weeks/2 days) EDC: 03/23/2023 Dates by Current Scan: (14 weeks/4 days) EDC: 03/21/2023 SURVEY IUP: Single PLACENTA: Fundal PREVIA: No Previa NAMRATA: 12.2 cm Normal CERVICAL LENGTH (transabdominal: norm > 3.0cm): 3.3 cm BIOMETRY PRESENTATION: Breech BPD: 2.6 cm 14 weeks / 4 days HC: 9.7 cm 14 weeks / 4 days AC: 8.0 cm 14 weeks / 4 days FL: 1.4 cm 14 weeks / 2 days ESTIMATED WEIGHT IN GRAMS: 95 grams ESTIMATED WEIGHT IN LBS/OZ: 0 lbs. 3 oz. WEIGHT PERCENTAGE BASED ON ESTABLISHED DATES: 90% HC/AC: 1.22 Normal FL/AC: 18 Normal HEART RATE: 161 bpm RHYTHM: Normal Single, viable IUP/ No abnormality at this time Single live intrauterine gestation is redemonstrated. Breech presentation currently. No cervical thin simona. Estimated amniotic fluid index within normal limits. No Placenta previa. biometry measure ments congruent and within normal limits with interval satisfactory progression from prior noted. IMPRESSION: As above.
[2022-09-24] MEDS ORDERED: METOCLOPRAMIDE 5 MG/ML 2 ML VIAL IVP STA (10:41)
[2022-09-24 10:46] VITALS: BP 127/69; PULSE 81; TEMP 98.1
== END 2022-09-24 11:24 | disposition home or self-care (01) ==
LOC: EC 07:58
DX: O21.9 Vomiting of pregnancy, unspecified (principal); Z87.891 Personal history of nicotine dependence; Z3A.13 13 weeks gestation of pregnancy
CPT/HCPCS: 36415; 80053; 85025; 81001; 76805; 99284; 96374; 96361 ×2; J2765

== ENCOUNTER 2022-10-07 23:11 | Emergency (ER) | payer OTHER ==
[2022-10-07 23:19] VITALS: BP 124/80; PULSE 94; RESP 16; TEMP 97.8
[2022-10-08] MEDS ORDERED: SODIUM CHLORIDE 0.9% 2,000 ML IV ONE (00:05)
[2022-10-08] MEDS ORDERED: METOCLOPRAMIDE 5 MG/ML 2 ML VIAL IVP STA (00:06)
[2022-10-08] MEDS ORDERED: diphenhydrAMINE 50 MG/ML 1 ML VIAL IVP STA (00:06)
[2022-10-08 00:41] LABS: Basophils % (A) 0 %; Eosinophils # (A) 0.1 k/uL (0-0.7); Eosinophils % (A) 0 %; HCT 33.1 % (34.0-46.0); HGB 11.8 gm/dL (11.4-16.0); Lymphocytes # (A) 0.8 k/uL (1.0-4.8); Lymphocytes % (A) 5 %; MCH 30.6 pg (25.0-35.0); MCHC 35.7 g/dL (31.0-37.0); MCV 85.7 fL (80.0-100.0); Mean Platelet Volume 7.5; Monocytes # (A) 0.4 k/uL (0-1.0); Monocytes % (A) 2 %; Neutrophils # (A) 15.5 k/uL (1.3-7.7); Neutrophils % (A) 92 %; Platelet Count 297 k/uL (150-450); RBC 3.86 m/uL (3.80-5.40); RDW 13.9 % (11.5-15.5); WBC 16.9 k/uL (3.8-10.6)
[2022-10-08 01:04] LABS: ALT 25 U/L (4-34); AST 21 U/L (14-36); African American GFR (CKD) >90 (>60 ml/min/1.73 sqM); Albumin 3.6 g/dL (3.5-5.0); Alkaline Phosphatase 57 U/L (38-126); Anion Gap 7 mmol/L; Blood Urea Nitrogen 4 mg/dL (7-17); Calcium 8.8 mg/dL (8.4-10.2); Carbon Dioxide 22 mmol/L (22-30); Chloride 106 mmol/L (98-107); Glucose 126 mg/dL (74-99); Lipase 23 U/L (23-300); Non-African American GFR(CKD) >90 (>60 ml/min/1.73 sqM); Potassium 4.3 mmol/L (3.5-5.1); Sodium 135 mmol/L (137-145); Total Bilirubin 0.3 mg/dL (0.2-1.3); Total Protein 6.3 g/dL (6.3-8.2)
[2022-10-08] MEDS ORDERED: SODIUM CHLORIDE 0.9% 1,000 ML IV ONE (02:10)
--- NOTE | 2022-10-08 02:17 | ED ---
General Adult HPI - General Chief complaint: Nausea/Vomiting/Diarrhea Stated complaint: Vomiting, 15 Wks Time Seen by Provider: 10/08/22 00:05 Source: patient, RN notes reviewed Mode of arrival: ambulatory Limitations: no limitations - History of Present Illness Initial comments: 26-year-old female presents emergency Department with chief complaint of nausea vomiting . Patient has been in the hospital, ER for this complaint since she found out she is . Patient is A0 currently 15 weeks patient states she's had no medication changes. Patient has had prior hospitalization denies any abdominal pain denies any vaginal bleeding. - Related Data Home Medications Medication Instructions Recorded Confirmed Pyridoxine HCl (Vitamin B6) 25 mg PO HS 09/22/22 09/24/22 [Pyridoxine HCl] diphenhydrAMINE [Benadryl] 50 mg PO HS 09/22/22 09/24/22 Previous Rx's Medication Instructions Recorded Ondansetron Odt [Zofran Odt] 4 mg PO Q8HR PRN #10 tab 09/22/22 Allergies Allergy/AdvReac Type Severity Reaction Status Date / Time No Known Allergies Allergy Verified 09/24/22 09:13 Review of Systems ROS Statement: Those systems with pertinent positive or pertinent negative responses have been documented in the HPI. ROS Other: All systems not noted in ROS Statement are negative. Past Medical History Past Medical History: No Reported History History of Any Multi-Drug Resistant Organisms: None Reported Past Surgical History: Orthopedic Surgery Additional Past Surgical History / Comment(s): rt ankle Past Anesthesia/Blood Transfusion Reactions: No Reported Reaction Additional Past Anesthesia/Blood Transfusion Reaction / Comment(s): no anesthesia Past Psychological History: ADD/ADHD Smoking Status: Former smoker Past Alcohol Use History: None Reported Past Drug Use History: None Reported - Past Family History Mother Family Medical History: Hypertension General Exam Limitations: no limitations General appearance: alert, in no apparent distress Head exam: Present: atraumatic, normocephalic, normal inspection Eye exam: Present: normal appearance, PERRL, EOMI. Absent: scleral icterus, conjunctival injection, periorbital swelling Respiratory exam: Present: normal lung sounds bilaterally. Absent: respiratory distress, wheezes, rales, rhonchi, stridor Cardiovascular Exam: Present: regular rate, normal rhythm, normal heart sounds. Absent: systolic murmur, diastolic murmur, rubs, gallop, clicks GI/Abdominal exam: Present: soft, normal bowel sounds. Absent: distended, tenderness, guarding, rebound, rigid Course Vital Signs 10/07/22 23:16 Temperature 97.8 F Pulse Rate 94 Respiratory 16 Rate Blood Pressure 124/80 O2 Sat by Pulse 99 Oximetry Medical Decision Making - Medical Decision Making Was pt. sent in by a medical professional or institution (, PA, MANAGER PROGRAM MANAGEMENT, urgent care, hospital, or fpc...) When possible be specific @ -No Did you speak to anyone other than the patient for history (EMS, parent, family, police, friend...)? What history was obtained from this source @ -No Did you review nursing and triage notes (agree or disagree)? Why? @ -I reviewed and agree with nursing and triage notes Were old charts reviewed (outside hosp., previous admission, EMS record, old EKG, old radiological studies, urgent care reports/EKG's, fpc records)? Report findings @ -Reviewed prior CBC, comp trying prior metabolic acidosis and reviewed prior PBX MANAGER evaluation notes Differential Diagnosis (chest pain, altered mental status, abdominal pain women, abdominal pain men, vaginal bleeding, weakness, fever, dyspnea, syncope, headache, dizziness, GI bleed, back pain, seizure, CVA, palpatations, mental health, musculoskeletal)? @ -nDifferential Abdominal Pain Women: Appendicitis, Cholecystitis, diverticulosis, ischemic bowel, pancreatitis, hepatitis, UTI, gastroenteritis, AAA, incarcerated hernia, bowel obstruction, constipation, inflammatory bowel, hepatitis, peptic ulcer disease, splenic infa rction, perforated viscus, vulvitis, ovarian torsion, PID, kidney stone, placenta abruption, this is not meant to be an all-inclusive listable EKG interpreted by me (3pts min.). @ -As above X-rays interpreted by me (1pt min.). @ -None done CT interpreted by me (1pt min.). @ -None done U/S interpreted by me (1pt. min.). @ -None done What testing was considered but not performed or refused? (CT, X-rays, U/S, labs)? Why? @ -None What meds were considered but not given or refused? Why? @ -None Did you discuss the management of the patient with other professionals (professionals i.e. , PA, MANAGER PROGRAM MANAGEMENT, lab, RT, psych nurse, social service manager, cell tester, teacher, chief security officer, case planner)? Give summary @ -No Was smoking cessation discussed for >3mins.? @ -No Was critical care preformed (if so, how long)? @ -No Were there social determinants of health that impacted care today? How? (Homelessness, low income, unemployed, alcoholism, drug addiction, transportation, low edu. Level, literacy, decrease access to med. care, [facility], rehab)? @ -No Was there de-escalation of care discussed even if they declined (Discuss DNR or withdrawal of care, Hospice)? DNR status @ -No What co-morbidities impacted this encounter? (DM, HTN, Smoking, COPD, CAD, Cancer, CVA, ARF, Chemo, Hep., AIDS, mental health diagnosis, sleep apnea, morbid obesity)? @ -Hyperemesis gravidarum Was patient admitted / discharged? Hospital course, mention meds given and route, prescriptions, significant lab abnormalities, going to OR and other pertinent info. @ -Discharge patient was given 3 L of fluid patient does not have a significant metabolic acidosis. Patient has no localized abdominal pain without any vaginal bleeding or vaginal discharge. Patient we discharged and follow-up with her PBX MANAGER. Undiagnosed new problem with uncertain prognosis? @ -No Drug Therapy requiring intensive monitoring for toxicity (Heparin, Nitro, Insulin, Cardizem)? @ -No Were any procedures done? @ -No Diagnosis/symptom? @ -Hyperemesis DM Acute, or Chronic, or Acute on Chronic? @ -Acute on chronic Uncomplicated (without systemic symptoms) or Complicated (systemic symptoms)? @ -[Uncomplicated Side effects of treatment? @ -No Exacerbation, Progression, or Severe Exacerbation? @ -No Poses a threat to life or bodily function? How? (Chest pain, [place], [place], pneumonia, PE, COPD, DKA, ARF, appy, cholecystitis, CVA, Diverticulitis, Homicidal, Suicidal, threat to staff... and all critical care pts) @ -No - Lab Data Result diagrams: 10/08/22 00:27 10/08/22 00:27 Lab Results 10/08/22 10/08/22 Range/Units 00:27 00:27 WBC 16.9 H (3.8-10.6) k/uL RBC 3.86 (3.80-5.40) m/uL Hgb 11.8 (11.4-16.0) gm/dL Hct 33.1 L (34.0-46.0) % MCV 85.7 (80.0-100.0) fL MCH 30.6 (25.0-35.0) pg MCHC 35.7 (31.0-37.0) g/dL RDW 13.9 (11.5-15.5) % Plt Count 297 (150-450) k/uL MPV 7.5 Neutrophils % 92 % Lymphocytes % 5 % Monocytes % 2 % Eosinophils % 0 % Basophils % 0 % Neutrophils # 15.5 H (1.3-7.7) k/uL Lymphocytes # 0.8 L (1.0-4.8) k/uL Monocytes # 0.4 (0-1.0) k/uL Eosinophils # 0.1 (0-0.7) k/uL Basophils # 0.0 (0-0.2) k/uL Sodium 135 L (137-145) mmol/L Potassium 4.3 (3.5-5.1) mmol/L Chloride 106 (98-107) mmol/L Carbon Dioxide 22 (22-30) mmol/L Anion Gap 7 mmol/L BUN 4 L (7-17) mg/dL Creatinine 0.36 L (0.52-1.04) mg/dL Est GFR (CKD-EPI)AfAm >90 (>60 ml/min/1.73 sqM) Est GFR (CKD-EPI)NonAf >90 (>60 ml/min/1.73 sqM) Glucose 126 H (74-99) mg/dL Calcium 8.8 (8.4-10.2) mg/dL Total Bilirubin 0.3 (0.2-1.3) mg/dL AST 21 (14-36) U/L ALT 25 (4-34) U/L Alkaline Phosphatase 57 (38-126) U/L Total Protein 6.3 (6.3-8.2) g/dL Albumin 3.6 (3.5-5.0) g/dL Lipase 23 (23-300) U/L Disposition Clinical Impression: Hyperemesis gravidarum Disposition: HOME SELF-CARE Condition: Stable Instructions (If sedation given, give patient instructions): Acute Nausea and Vomiting (ED) Additional Instructions: Please return to the Emergency Department if symptoms worsen or any other concerns. Is patient prescribed a controlled substance at d/c from ED?: No Referrals: Carlo Zamora DO [Primary Care Provider] - 1-2 days Time of Disposition: 03:09
[2022-10-08 03:46] LABS: Appearance,Urine Cloudy (Clear); Bacteria,Urine Occasional /hpf; Bilirubin,Urine Negative (Negative); Blood,Urine Negative (Negative); Color,Urine Yellow; Glucose,Urine (UA) Negative (Negative); Ketones,Urine 4+ (Negative); Leukocyte Esterase,Urine Large (Negative); Mucus,Urine Many /hpf; Nitrite,Urine Negative (Negative); PH, Urine 6.5 (5.0-8.0); Protein,Urine 1+ (Negative); RBC,Urine 11 /hpf (0-5); Specific Gravity,Urine 1.024 (1.001-1.035); Squamous Epithelial Cell,Urine 31 /hpf (0-4); Urobilinogen,Urine <2.0 mg/dL (<2.0); WBC,Urine 5 /hpf (0-5)
== END 2022-10-08 04:17 | disposition home or self-care (01) ==
LOC: EC 23:11
DX: O21.0 Mild hyperemesis gravidarum (principal); Z87.891 Personal history of nicotine dependence; Z3A.15 15 weeks gestation of pregnancy
CPT/HCPCS: 36415; 80053; 83690; 85025; 81001; 99284; 96374; 96375; 96361 ×2; J1200; J2765

== ENCOUNTER 2022-11-15 19:05 | Outpatient (CLI) | payer OTHER ==
[2022-11-15] MEDS: LACTATED RINGERS 1,000 ML IV SCH ×4 (19:42→21:16)
[2022-11-15 20:08] LABS: Appearance,Urine Turbid (Clear); Bilirubin,Urine Negative (Negative); Blood,Urine Negative (Negative); Color,Urine Yellow; Glucose,Urine (UA) Negative (Negative); Ketones,Urine 4+ (Negative); Leukocyte Esterase,Urine Large (Negative); Mucus,Urine Moderate /hpf; Nitrite,Urine Negative (Negative); PH, Urine 6.5 (5.0-8.0); Protein,Urine 1+ (Negative); RBC,Urine 2 /hpf (0-5); Squamous Epithelial Cell,Urine 53 /hpf (0-4); WBC,Urine 17 /hpf (0-5)
[2022-11-15] MEDS ORDERED: PROCHLORPERAZINE INJ 10 MG/2 ML VIAL IVP STA (20:19)
[2022-11-15 22:19] VITALS: BP 127/75; PULSE 97; RESP 16; TEMP 97.7
--- NOTE | 2022-12-17 19:08 | P.MSEPDOC ---
Presenting Problems - Arrival Data Date of Arrival on Unit: 11/15/22 Time of Arrival on Unit: 19:00 Mode of Transport: Wheelchair - Complaint OB-Reason for Admission/Chief Complaint: Hyperemesis Comment: pt. present to triage due to hyperemesis, pt. states she has been sick this. entire pregnacy so far, pt. states she was hospitalized last week due to it. pt. has. been throwing up for the last 2 days and unable to keep anything down, pt. states she. has drank half a big smart water bottle today but that is all she was able to keep down. pt. denies any pain Medical History - Information : 2 Para: 1 Term: 1 : 0 Abortions: Spontaneous or Elective: 0 Number of Living Children: 1 - Gestational Age Gestational Age by RAYMUNDO (wks/days): 20 Weeks and 6 Days - History Complications: Smoker Comment: THC use Review of Systems - Review of Systems Constitutional: No problems Breast: No problems ENT: No problems Cardiovascular: No problems Respiratory: No problems Gastrointestinal: No problems Genitourinary: No problems Musculoskeletal: No problems Neurological: No problems Skin: No problems Vital Signs - Temperature Temperature: 97.7 F Temperature Source: Oral - Pulse Pulse Oximetery Pulse Rate: 97 Pulse Assessment Method: Automatic Cuff - Respirations Respiratory Rate: 16 Oxygen Delivery Method: Room Air O2 Sat by Pulse Oximetry: 99 - Blood Pressure Right Arm Blood Pressure: 127/75 Blood Pressure Mean: 92 Blood Pressure Source: Automatic Cuff Physician Notification - Physician Notified Physician Notified Date: 11/15/22 Physician Notified Time: 19:28 Physician: Shira Post New Order Received: Yes - Notification Comment Comment: orders to send UA, and start IV hydration 1 Liter bolus, 2nd and 3rd bag on pump, compazine 10mg given orders to discharge pt. home and call office tomorrow Maternal Triage Index - Maternal Triage Index Presenting for scheduled procedure w/no complaint: No - Stat/Priority 1 Stat Priority 1: No - Urgent/Priority 2 Urgent Priority 2: No - Prompt/Priority 3 Prompt Priority 3: Yes Criteria Met for Priority 3: 20.6, pt. has hyperemesis - Non-Urgent/Priority 4 Non-Urgent Priority 4: No Disposition - Disposition OB Disposition: Discharge to home Discharge Date: 11/15/22 Discharge Time: 22:18 I agree with the RN Medical Screening Exam: Yes Case reviewed; plan agreed upon as documented in EMR&OBIX.: Yes Diagnosis: RELATED CONDITIONS, UNSPECIFIED, SECOND TRIMESTER
== END 2022-11-15 22:18 | disposition home or self-care (01) ==
LOC: FBPOP 19:05
PROVIDERS: ATTEND Obstetrics & Gynecology Obstetrics
DX: O21.1 Hyperemesis gravidarum with metabolic disturbance (principal); O99.332 Smoking (tobacco) complicating pregnancy, second trimester; O99.322 Drug use complicating pregnancy, second trimester; F17.200 Nicotine dependence, unspecified, uncomplicated; F12.90 Cannabis use, unspecified, uncomplicated; Z3A.20 20 weeks gestation of pregnancy
CPT/HCPCS: 96361; 96374; 81001; G0463; J0780; 36415; 96360; 96375; 99214

== ENCOUNTER 2022-11-16 05:53 | Observation (INO) | payer OTHER ==
[2022-11-16] MEDS ORDERED: FAMOTIDINE 20 MG/2 ML VIAL IV ONE (06:21)
[2022-11-16] MEDS ORDERED: PROMETHAZINE 25 MG TAB PO STA (06:21)
[2022-11-16] MEDS ORDERED: SODIUM CHLORIDE 0.9% 1,000 ML IV SCH (06:30)
[2022-11-16] MEDS ORDERED: PROMETHAZINE SUPPOSITORY 25 MG SUPP RECTAL STA (06:59)
[2022-11-16 07:42] LABS: Basophils % (A) 0 %; Eosinophils # (A) 0.2 k/uL (0-0.7); Eosinophils % (A) 1 %; HCT 36.6 % (34.0-46.0); HGB 12.2 gm/dL (11.4-16.0); Lymphocytes # (A) 0.8 k/uL (1.0-4.8); Lymphocytes % (A) 6 %; MCH 29.7 pg (25.0-35.0); MCHC 33.4 g/dL (31.0-37.0); Mean Platelet Volume 9.1; Monocytes # (A) 0.3 k/uL (0-1.0); Monocytes % (A) 2 %; Neutrophils # (A) 12.9 k/uL (1.3-7.7); Neutrophils % (A) 90 %; Platelet Count 175 k/uL (150-450); RBC 4.12 m/uL (3.80-5.40); RDW 13.4 % (11.5-15.5); WBC 14.3 k/uL (3.8-10.6)
[2022-11-16 08:00] LABS: ALT 27 U/L (4-34); AST 29 U/L (14-36); African American GFR (CKD) >90 (>60 ml/min/1.73 sqM); Albumin 3.8 g/dL (3.5-5.0); Alkaline Phosphatase 68 U/L (38-126); Anion Gap 13 mmol/L; Blood Urea Nitrogen 3 mg/dL (7-17); Calcium 8.9 mg/dL (8.4-10.2); Carbon Dioxide 18 mmol/L (22-30); Chloride 105 mmol/L (98-107); Glucose 153 mg/dL (74-99); Non-African American GFR(CKD) >90 (>60 ml/min/1.73 sqM); Potassium 3.7 mmol/L (3.5-5.1); Sodium 136 mmol/L (137-145); Total Bilirubin 0.6 mg/dL (0.2-1.3); Total Protein 6.6 g/dL (6.3-8.2)
[2022-11-16] MEDS ORDERED: LIDOCAINE 5% PATCH TOPICAL ONE (09:54)
[2022-11-16] MEDS ORDERED: diphenhydrAMINE 50 MG/ML 1 ML VIAL IVP PRN (11:58)
[2022-11-16] MEDS ORDERED: PROCHLORPERAZINE INJ 10 MG/2 ML VIAL IVP PRN (11:59)
[2022-11-16] MEDS: PROCHLORPERAZINE INJ 10 MG/2 ML VIAL IVP SCH ×2 (13:07→17:56)
[2022-11-16] MEDS: 1: MVI, ADULT NO.4 WITH VIT K 10 ML, THIAMINE 100 MG, FOLIC ACID 1 MG in SODIUM CHLORIDE IV SCH ×4 (13:36)
[2022-11-16] MEDS: ACETAMINOPHEN IV (For NPO) 1,000 MG in EMPTY BAG 1 BAG IVPB PRN ×2 (15:37→21:49)
[2022-11-16] MEDS: diphenhydrAMINE 50 MG/ML 1 ML VIAL IVP SCH (18:00)
[2022-11-17] MEDS: diphenhydrAMINE 50 MG/ML 1 ML VIAL IVP SCH ×4 (00:24→18:03)
[2022-11-17] MEDS: PROCHLORPERAZINE INJ 10 MG/2 ML VIAL IVP SCH ×4 (00:24→17:59)
[2022-11-17] MEDS: 1: MVI, ADULT NO.4 WITH VIT K 10 ML, THIAMINE 100 MG, FOLIC ACID 1 MG in SODIUM CHLORIDE IV SCH ×12 (00:30→21:04)
[2022-11-17] MEDS: ACETAMINOPHEN IV (For NPO) 1,000 MG in EMPTY BAG 1 BAG IVPB PRN (04:19)
--- NOTE | 2022-11-17 09:30 | P.HPOB ---
History of Present Illness H&P Date: 11/17/22 Chief Complaint: Intractable nausea and vomiting [place] is a 26-year-old 2 para 1001 at 21 weeks and 1 day by LMP consistent with a 9 week ultrasound who presents to triage with intractable nausea and vomiting. This is her third admission for hyperemesis during the . She has a history of chronic marijuana use and there is a suspected cyclic vomiting syndrome component to her nausea and vomiting. She was feeling well last week and stopped using her Benadryl and Compazine. Then on Wednesday she became nauseous and had many episodes of nausea and vomiting. She was seen in triage on Wednesday night and sent home after getting 3 liters of fluid and an tiemetics. She returned a few hours later with recurrent vomiting. She states she did try to use marijuana on Wednesday and this did not relieve her symptoms. She is feeling good movement. She denies any cramping or bleeding. Past Medical History Past Medical History: No Reported History History of Any Multi-Drug Resistant Organisms: None Reported Past Surgical History: Orthopedic Surgery Additional Past Surgical History / Comment(s): rt ankle Past Anesthesia/Blood Transfusion Reactions: No Reported Reaction Additional Past Anesthesia/Blood Transfusion Reaction / Comment(s): no anesthesia Past Psychological History: ADD/ADHD Smoking Status: Current every day smoker Past Alcohol Use History: None Reported Past Drug Use History: Marijuana - Past Family History Mother Family Medical History: Hypertension Medications and Allergies Home Medications Medication Instructions Recorded Confirmed Type Lidocaine 5% Patch [Lidoderm 5% 1 patch TOPICAL DAILY #30 patch 10/30/22 11/16/22 Rx Patch] Omeprazole [PriLOSEC] 40 mg PO DAILY #30 cap 10/30/22 11/16/22 Rx Prochlorperazine [Compazine] 10 mg PO Q6H PRN #60 tab 10/30/22 11/16/22 Rx diphenhydrAMINE [Benadryl] 25 mg PO QID PRN #100 capsule 10/30/22 11/16/22 Rx Allergies Allergy/AdvReac Type Severity Reaction Status Date / Time No Known Allergies Allergy Verified 11/15/22 19:08 Exam Vital Signs Temp Pulse Resp BP Pulse Ox 11/16/22 23:05 98.7 F 80 16 133/76 11/16/22 15:34 98.7 F 79 18 118/66 99 11/16/22 13:51 97.7 F 85 18 132/95 97 Intake and Output 11/16/22 11/17/22 11/17/22 22:59 06:59 14:59 Output Total 300 Balance -300 Output: Emesis 300 Other: # Voids 1 1 Focused physical exam was performed this is a healthy-appearing . She is tearful the morning. Abdomen is soft and nontender. Extremities are non- tender and non-edematous. Results Result Diagrams: 11/16/22 07:28 11/16/22 07:28 Assessment and Plan Assessment: 26 year old at 21w1d admitted for the third time this with nausea and vomiting, suspected a combination of hyperemesis and cyclic vomiting syndrome from chronic marijuana use Plan: Regular diet as tolerated, discussed liquids from solids. Eat bland foods like dry toast or crackers. IV compazine, benadryl scheduled. IV protonix daily. Banana bag daily. Will add cepacol lozenges for throat pain. IV tylenol prn for pain. Time with Patient: Less than 30 (10 minutes)
[2022-11-17] MEDS: LIDOCAINE 5% PATCH TOPICAL SCH (10:15)
[2022-11-17] MEDS: BENZOCAINE/MENTHOL LOZENG 1 EACH LOZENGE MUCOUS MEM PRN (10:32)
[2022-11-17] MEDS: PANTOPRAZOLE 40 MG/10 ML VIAL IVP SCH (10:33)
[2022-11-17] MEDS ORDERED: ACETAMINOPHEN IV (For NPO) 1,000 MG in EMPTY BAG 1 BAG IVPB PRN (19:56)
--- NOTE | 2022-11-17 20:55 | XR ---
EXAMINATION TYPE: XR foot complete RT DATE OF EXAM: 11/17/2022 COMPARISON: 07/19/2012 HISTORY: Equipment dropped on right foot TECHNIQUE: Three-view right foot FINDINGS: Prior repair is evident at the level of the navicular. No acute fractures are evident. Joint spaces are preserved. Alignment is preserved. Follow up exams can be performed 7-10 days from acute trauma. IMPRESSION: 1. No acute osseous abnormality right foot.
[2022-11-18] MEDS: diphenhydrAMINE 50 MG/ML 1 ML VIAL IVP SCH ×4 (00:08→23:20)
[2022-11-18] MEDS: PROCHLORPERAZINE INJ 10 MG/2 ML VIAL IVP SCH ×4 (00:32→23:18)
[2022-11-18] MEDS: 1: MVI, ADULT NO.4 WITH VIT K 10 ML, THIAMINE 100 MG, FOLIC ACID 1 MG in SODIUM CHLORIDE IV SCH ×8 (04:21→18:30)
[2022-11-18] MEDS ORDERED: ACETAMINOPHEN IV (For NPO) 1,000 MG in EMPTY BAG 1 BAG IVPB PRN (08:44)
--- NOTE | 2022-11-18 08:44 | P.PN ---
Subjective Progress Note Date: 11/18/22 Principal diagnosis: hyperemesis, cyclic vomiting syndrome 2/2 chronic marijuana use Patient doing okay this morning. She had 4-5 episodes of vomiting since late yesterday evening after a long stretch of no vomiting. She states she was anxious and very stressed out because her daughter was taken to the emergency room for constipation and blood in the stool. She is nauseous this morning. Will try IV steroids today. Educated patient on no marijuana use after discharge, continue scheduled compazine and benadryl after discharge. Biofreeze or tiger balm on the epigastrium. Objective - Vital Signs Vital signs: Vital Signs Temp 97.7 F 11/18/22 08:29 Pulse 73 11/18/22 08:29 Resp 20 11/18/22 08:29 BP 137/70 11/18/22 08:29 Pulse Ox 96 11/18/22 04:00 FiO2 Intake & Output 11/17/22 11/18/22 11/18/22 18:59 06:59 18:59 Intake Total 1000 1011.2 Balance 1000 1011.2 Intake: Intake, IV Titration 1000 1011.2 Amount Mvi, Adult No.4 with Vit 1011.2 K 10 ml Thiamine 100 mg Folic Acid 1 mg In Sodium Chloride 0.9% 1,000 ml @ 100 mls/hr IV .BY DURATION NICOLAS Rx#: [id number] Sodium Chloride 0.9% 1, 1000 000 ml @ 100 mls/hr IV . BY DURATION NICOLAS Rx#: [id number] Other: # Voids 2 1 - Constitutional General appearance: Present: average body habitus - Gastrointestinal General gastrointestinal: Present: soft - Neurologic Neurologic: Present: CNII-XII intact - Psychiatric Psychiatric: Present: A&O x's 3, appropriate affect, intact judgment & insight - Labs CBC & Chem 7: 11/16/22 07:28 11/16/22 07:28 Assessment and Plan Assessment: 26 year old at 21w2d admitted for the third time this with nausea and vomiting, suspected a combination of hyperemesis and cyclic vomiting syndrome from chronic marijuana use Plan: Regular diet as tolerated, discussed liquids from solids. Eat bland foods like dry toast or crackers. IV compazine, benadryl scheduled. IV protonix daily. Banana bag daily. Will add cepacol lozenges for throat pain. IV tylenol for pain. Will add IV steroid. Time with Patient: Less than 30 (15 minutes)
[2022-11-18] MEDS: methylPREDNISolone SOD SUCCI 40 MG/ML 1 ML VIAL IV SCH ×2 (09:35→23:22)
[2022-11-18] MEDS: PANTOPRAZOLE 40 MG/10 ML VIAL IVP SCH (09:37)
[2022-11-18] MEDS: LIDOCAINE 5% PATCH TOPICAL SCH (09:46)
[2022-11-18] MEDS: BENZOCAINE/MENTHOL LOZENG 1 EACH LOZENGE MUCOUS MEM PRN (09:47)
[2022-11-18] MEDS ORDERED: ONDANSETRON 4 MG/2 ML VIAL IVP PRN (15:53)
[2022-11-18 23:33] VITALS: BP 137/80; PULSE 81; RESP 18; TEMP 98.7
[2022-11-19] MEDS ORDERED: PROCHLORPERAZINE 10 MG TAB PO PRN (06:22)
[2022-11-19] MEDS ORDERED: diphenhydrAMINE 25 MG CAP PO SCH (07:00)
[2022-11-19] MEDS ORDERED: PANTOPRAZOLE 40 MG TABLET PO ONE (09:00)
[2022-11-19] MEDS ORDERED: predniSONE 20 MG TAB PO SCH (09:00)
[2022-11-19] MEDS: LIDOCAINE 5% PATCH TOPICAL SCH (09:06)
--- NOTE | 2022-11-19 09:27 | P.DS ---
Providers Date of admission: 11/16/22 12:01 Expected date of discharge: 11/19/22 Attending physician: Jada Selby MD Primary care physician: Stated None Hospital Course: Miss joel Oneal is a 26-year-old at 21 weeks and 3 days gestation admitted with hyperemesis of and cyclic vomiting syndrome due to chronic marijuana use. The patient was admitted for IV hydration and antiemetics due to intractable nausea and vomiting. This has been her third admission of the . She admits to chronic marijuana use at home. After last admission and a long discussion about marijuana cessation she stopped for a week or so and then attempted use when she became nauseous again. Prior to her admission she also had stopped her oral Benadryl and Compazine that was keeping nausea at bay. She is now feeling better, has tolerated popsicles and ice chips, she is also tolerating her oral medications. She denies nausea. She desires discharge home today. I again encouraged marijuana cessation. We discussed using Biofreeze patches or tiger balm on the epigastrium instead of lidocaine patches that were previously prescrived because these were too expensive. I discussed that we will do a steroid taper when she is discharged as steroids appeared to be the most effective treatment for her nausea and vomiting. She will also go home with a refill on Compazine and Prilosec. She is to follow-up in the office as scheduled on December 07. Questions answered. Assessment: 26 year old on third admission for intractable nausea and vomiting of and cyclic vomiting syndrome 2/2 chronic marijuana use Patient Condition at Discharge: Good Plan - Discharge Summary Discharge Rx Participant: No New Discharge Prescriptions: New Omeprazole Magnesium [PriLOSEC OTC] 20 mg PO DAILY #90 tab Prochlorperazine [Compazine] 10 mg PO Q6H PRN #90 tab PRN Reason: Nausea And Vomiting predniSONE [Deltasone] 40 mg PO DAILY #5 tab predniSONE 10 mg PO DAILY #3 tab predniSONE 5 mg PO DAILY #7 tab No Action Lidocaine 5% Patch [Lidoderm 5% Patch] 1 patch TOPICAL DAILY #30 patch Omeprazole [PriLOSEC] 40 mg PO DAILY #30 cap diphenhydrAMINE [Benadryl] 25 mg PO QID PRN #100 capsule PRN Reason: Nausea Prochlorperazine [Compazine] 10 mg PO Q6H PRN #60 tab PRN Reason: Nausea Discharge Medication List Lidocaine 5% Patch [Lidoderm 5% Patch] 1 patch TOPICAL DAILY #30 patch 10/30/22 [Rx] Omeprazole [PriLOSEC] 40 mg PO DAILY #30 cap 10/30/22 [Rx] Prochlorperazine [Compazine] 10 mg PO Q6H PRN #60 tab 10/30/22 [Rx] diphenhydrAMINE [Benadryl] 25 mg PO QID PRN #100 capsule 10/30/22 [Rx] Omeprazole Magnesium [PriLOSEC OTC] 20 mg PO DAILY #90 tab 11/19/22 [Rx] Prochlorperazine [Compazine] 10 mg PO Q6H PRN #90 tab 11/19/22 [Rx] predniSONE 5 mg PO DAILY #7 tab 11/19/22 [Rx] predniSONE 10 mg PO DAILY #3 tab 11/19/22 [Rx] predniSONE [Deltasone] 40 mg PO DAILY #5 tab 11/19/22 [Rx] Follow up Appointment(s)/Referral(s): Jada Selby MD [STAFF PHYSICIAN] - 12/07/22 Patient Instructions/Handouts: Cannabis Abuse (DC), Hyperemesis Gravidarum (DC) Discharge Disposition: HOME SELF-CARE
== END 2022-11-19 10:36 | disposition home or self-care (01) ==
LOC: FBPOP 05:53 → 4FBP 12:01
PROVIDERS: ADMIT Obstetrics & Gynecology; ATTEND Obstetrics & Gynecology
DX: O21.0 Mild hyperemesis gravidarum (principal); O99.332 Smoking (tobacco) complicating pregnancy, second trimester; O99.342 Other mental disorders complicating pregnancy, second trimester; O99.322 Drug use complicating pregnancy, second trimester; R07.0 Pain in throat; F90.9 Attention-deficit hyperactivity disorder, unspecified type; F12.10 Cannabis abuse, uncomplicated; F17.200 Nicotine dependence, unspecified, uncomplicated; Z82.49 Family history of ischemic heart disease and other diseases of the circulatory system; Z3A.21 21 weeks gestation of pregnancy; Z79.899 Other long term (current) drug therapy
CPT/HCPCS: 96376 ×3; 96361 ×3; 96365 ×2; 96366 ×4; 96375 ×4; 96360; 80053; 85025; 73630; G0378 ×4; G0463; J1200 ×3; J0780 ×3; J2920; J3411 ×3; J0131 ×2; J7512; C9113 ×2; 96374; 99214

== ENCOUNTER 2022-12-28 03:34 | Outpatient (CLI) | payer OTHER ==
[2022-12-28 04:26] VITALS: BP 117/81; PULSE 76; RESP 18; TEMP 97.6
[2022-12-28] MEDS: LACTATED RINGERS 1,000 ML IV SCH ×3 (05:16→07:15)
[2022-12-28 05:31] LABS: Basophils % (A) 0 %; Eosinophils # (A) 0.1 k/uL (0-0.7); Eosinophils % (A) 1 %; HCT 35.9 % (34.0-46.0); Lymphocytes # (A) 0.9 k/uL (1.0-4.8); Lymphocytes % (A) 7 %; MCH 29.7 pg (25.0-35.0); MCHC 33.4 g/dL (31.0-37.0); MCV 89.1 fL (80.0-100.0); Mean Platelet Volume 7.7; Monocytes # (A) 0.2 k/uL (0-1.0); Monocytes % (A) 2 %; Neutrophils # (A) 12.5 k/uL (1.3-7.7); Neutrophils % (A) 91 %; Platelet Count 323 k/uL (150-450); RBC 4.03 m/uL (3.80-5.40); RDW 13.5 % (11.5-15.5); WBC 13.8 k/uL (3.8-10.6)
[2022-12-28] MEDS ORDERED: PROCHLORPERAZINE INJ 10 MG/2 ML VIAL IVP STA (08:10)
[2022-12-28] MEDS ORDERED: diphenhydrAMINE 50 MG/ML 1 ML VIAL IVP STA (08:10)
[2022-12-28 08:25] LABS: Amorphous Sediment,Urine Rare /hpf; Appearance,Urine Cloudy (Clear); Bilirubin,Urine Negative (Negative); Blood,Urine Negative (Negative); Color,Urine Yellow; Glucose,Urine (UA) Trace (Negative); Ketones,Urine 4+ (Negative); Leukocyte Esterase,Urine Trace (Negative); Mucus,Urine Many /hpf; Nitrite,Urine Negative (Negative); PH, Urine 7.5 (5.0-8.0); Protein,Urine 1+ (Negative); RBC,Urine 1 /hpf (0-5); Specific Gravity,Urine 1.025 (1.001-1.035); Squamous Epithelial Cell,Urine 6 /hpf (0-4); Urobilinogen,Urine <2.0 mg/dL (<2.0); WBC,Urine 3 /hpf (0-5)
[2022-12-28] MEDS ORDERED: LIDOCAINE 5% PATCH TOPICAL ONE (08:30)
[2022-12-28 11:55] LABS: African American GFR (CKD) >90 (>60 ml/min/1.73 sqM); Anion Gap 9 mmol/L; Blood Urea Nitrogen 4 mg/dL (7-17); Calcium 8.8 mg/dL (8.4-10.2); Carbon Dioxide 19 mmol/L (22-30); Chloride 105 mmol/L (98-107); Glucose 119 mg/dL (74-99); Non-African American GFR(CKD) >90 (>60 ml/min/1.73 sqM); Potassium 3.8 mmol/L (3.5-5.1); Sodium 133 mmol/L (137-145)
[2022-12-28] MEDS ORDERED: FAMOTIDINE 20 MG/2 ML VIAL IV SCH (12:30)
[2022-12-29] MEDS ORDERED: LIDOCAINE 5% PATCH TOPICAL SCH (09:00)
--- NOTE | 2023-01-07 10:50 | P.MSEPDOC ---
Presenting Problems - Arrival Data Date of Arrival on Unit: 12/28/22 Time of Arrival on Unit: 03:34 Mode of Transport: Wheelchair - Complaint OB-Reason for Admission/Chief Complaint: Other Comment: NVD, body aches, cold sweats x1 day Medical History - Information : 2 Para: 1 Term: 1 : 0 Abortions: Spontaneous or Elective: 0 Number of Living Children: 1 - Gestational Age Gestational Age by RAYMUNDO (wks/days): 27 Weeks and 0 Days - History Complications: Smoker Review of Systems - Review of Systems Constitutional: No problems Breast: No problems ENT: No problems Cardiovascular: No problems Respiratory: No problems Gastrointestinal: No problems Genitourinary: No problems Musculoskeletal: No problems Neurological: No problems Skin: No problems Vital Signs - Temperature Temperature: 97.6 F Temperature Source: Oral - Pulse Pulse Oximetery Pulse Rate: 76 Pulse Assessment Method: Pulse Oximetry - Respirations Respiratory Rate: 18 Oxygen Delivery Method: Room Air O2 Sat by Pulse Oximetry: 100 - Blood Pressure Right Arm Blood Pressure: 117/81 Blood Pressure Mean: 93 Blood Pressure Source: Automatic Cuff Physician Notification - Physician Notified Physician Notified Date: 12/28/22 Physician Notified Time: 03:50 Physician: Ivan Horton - Notification Comment Comment: Dr. Horton in unit for another pt. Aware of pt's arrival to triage and of. her complaints, stated she had attempted to call him but did not answer when he called. back. Sated he will assess and give orders after his delivery. Maternal Triage Index - Maternal Triage Index Presenting for scheduled procedure w/no complaint: No - Stat/Priority 1 Stat Priority 1: No - Urgent/Priority 2 Urgent Priority 2: No - Prompt/Priority 3 Prompt Priority 3: No - Non-Urgent/Priority 4 Non-Urgent Priority 4: Yes Criteria Met for Priority 4: Pt is a with RAYMNUDO [birth year] here at 27.0 weeks of gestation with c/o NVD,. cold sweats, body aches including the lower abdomen and back, and chills x1 day. Pt. reports hyperemesis with this but denies other complications. Pt reports. intercourse in the last 24 hours. Disposition - Disposition OB Disposition: Triage Discharge Date: 12/28/22 Discharge Time: 12:30 I agree with the RN Medical Screening Exam: Yes Physician's MSE Comment: I have neither seen nor examined the patient. Case reviewed; plan agreed upon as documented in EMR&OBIX.: Yes Diagnosis: RELATED CONDITIONS, UNSPECIFIED, SECOND TRIMESTER
== END 2022-12-28 12:30 | disposition home or self-care (01) ==
LOC: FBPOP 03:34
PROVIDERS: ATTEND Obstetrics & Gynecology
DX: O26.892 Other specified pregnancy related conditions, second trimester (principal); O99.323 Drug use complicating pregnancy, third trimester; Z3A.27 27 weeks gestation of pregnancy
CPT/HCPCS: 96361; 96374; 96375; 80048; 85025; 81001; G0463; J1200; J0780; 99214

== ENCOUNTER 2023-01-24 06:14 | Outpatient (CLI) | payer OTHER ==
[2023-01-24] MEDS ORDERED: ONDANSETRON 4 MG/2 ML VIAL IM STA (06:32)
[2023-01-24] MEDS ORDERED: ONDANSETRON 4 MG/2 ML VIAL IVP STA (07:18)
[2023-01-24] MEDS: LACTATED RINGERS 1,000 ML IV SCH ×3 (07:21→10:53)
[2023-01-24 08:49] VITALS: BP 135/79; PULSE 66; RESP 16; TEMP 96.2
[2023-01-24] MEDS ORDERED: TERBUTALINE 1 MG/ML VIAL SQ STA (10:34)
[2023-01-24] MEDS ORDERED: METOCLOPRAMIDE 5 MG/ML 2 ML VIAL IVP STA (10:35)
[2023-01-24 11:42] LABS: Appearance,Urine Clear (Clear); Color,Urine Yellow; Glucose,Urine (UA) Trace (Negative); Ketones,Urine 2+ (Negative); Protein,Urine 1+ (Negative)
[2023-01-24 11:43] LABS: Bilirubin,Urine Negative (Negative); Blood,Urine Negative (Negative); Leukocyte Esterase,Urine Negative (Negative); Nitrite,Urine Negative (Negative); Squamous Epithelial Cell,Urine 8 /hpf (0-4); Urobilinogen,Urine <2.0 mg/dL (<2.0); WBC,Urine 2 /hpf (0-5)
[2023-01-24 11:44] LABS: Bacteria,Urine Many /hpf
--- NOTE | 2023-02-10 18:20 | P.MSEPDOC ---
Presenting Problems - Arrival Data Date of Arrival on Unit: 01/24/23 Time of Arrival on Unit: 06:15 Mode of Transport: Wheelchair - Complaint OB-Reason for Admission/Chief Complaint: Hyperemesis Comment: pt hx of hyperemisis with preg."unable to keep anything down". contx on monitor. 30 weeks and 6 days. Medical History - Information : 2 Para: 0 Term: 0 : 0 Abortions: Spontaneous or Elective: 1 Number of Living Children: 0 - Gestational Age Gestational Age by RAYMUNDO (wks/days): 30 Weeks and 6 Days - History Complications: Smoker Review of Systems - Review of Systems Constitutional: No problems Breast: No problems ENT: No problems Cardiovascular: No problems Respiratory: No problems Gastrointestinal: No problems Genitourinary: No problems Musculoskeletal: No problems Neurological: No problems Skin: No problems Vital Signs - Temperature Temperature: 96.2 F Temperature Source: Temporal Artery Scan - Pulse Right Radial Pulse Rate: 66 Pulse Assessment Method: Automatic Cuff - Respirations Respiratory Rate: 16 Oxygen Delivery Method: Room Air O2 Sat by Pulse Oximetry: 99 - Blood Pressure Right Arm Blood Pressure: 135/79 Blood Pressure Mean: 97 Blood Pressure Source: Automatic Cuff Medical Screen Scoring - Cervical Exam Membranes: Intact - Uterine Contractions Intensity: Mild Resting: Soft to palpation - Assessment - Baby A Baseline FHR: 120 Heart Rate - NICHD Category: Category I (Normal) NST: Reactive Physician Notification - Physician Notified Physician Notified Date: 01/24/23 Physician Notified Time: 07:00 Physician: Shira Post New Order Received: Yes (see orders) - Notification Comment Comment: may return home when feeling better with instructions. keep next scheduled appt. Maternal Triage Index - Non-Urgent/Priority 4 Non-Urgent Priority 4: Yes Criteria Met for Priority 4: neg ffn. iv hydration. contx getting milder. med given for n/v. sve= closed ,thick, and high. Disposition - Disposition OB Disposition: Discharge to home, Written follow up instructions reviewed Discharge Date: 01/24/23 Discharge Time: 13:20 I agree with the RN Medical Screening Exam: Yes Case reviewed; plan agreed upon as documented in EMR&OBIX.: Yes Diagnosis: VOMITING OF , UNSPECIFIED
== END 2023-01-24 13:20 | disposition home or self-care (01) ==
LOC: FBPOP 06:14
PROVIDERS: ATTEND Obstetrics & Gynecology Obstetrics
DX: O26.893 Other specified pregnancy related conditions, third trimester (principal); O21.1 Hyperemesis gravidarum with metabolic disturbance; Z3A.30 30 weeks gestation of pregnancy
CPT/HCPCS: 59025; 96361; 96372; 96374; 96375; 82731; 81001; G0463; J3105; J2765; J2405; 96365; 96366; 99214

== ENCOUNTER 2023-01-26 15:10 | Outpatient (CLI) | payer OTHER ==
[2023-01-26] MEDS ORDERED: PROCHLORPERAZINE INJ 10 MG/2 ML VIAL IVP STA (15:26)
[2023-01-26] MEDS ORDERED: diphenhydrAMINE 50 MG/ML 1 ML VIAL IVP STA (15:29)
[2023-01-26 15:45] LABS: Basophils % (A) 0 %; Eosinophils # (A) 0.1 k/uL (0-0.7); Eosinophils % (A) 1 %; HCT 32.9 % (34.0-46.0); HGB 11.6 gm/dL (11.4-16.0); Lymphocytes # (A) 1.1 k/uL (1.0-4.8); Lymphocytes % (A) 12 %; MCH 30.3 pg (25.0-35.0); MCHC 35.3 g/dL (31.0-37.0); Monocytes # (A) 0.7 k/uL (0-1.0); Monocytes % (A) 7 %; Neutrophils # (A) 7.6 k/uL (1.3-7.7); Neutrophils % (A) 79 %; Platelet Count 259 k/uL (150-450); RBC 3.83 m/uL (3.80-5.40); RDW 13.5 % (11.5-15.5); WBC 9.5 k/uL (3.8-10.6)
[2023-01-26] MEDS ORDERED: LIDOCAINE 5% PATCH TOPICAL ONE (15:45)
[2023-01-26 16:04] LABS: ALT 33 U/L (4-34); AST 44 U/L (14-36); African American GFR (CKD) >90 (>60 ml/min/1.73 sqM); Albumin 3.7 g/dL (3.5-5.0); Alkaline Phosphatase 114 U/L (38-126); Anion Gap 9 mmol/L; Blood Urea Nitrogen 6 mg/dL (7-17); Carbon Dioxide 20 mmol/L (22-30); Chloride 105 mmol/L (98-107); Glucose 93 mg/dL (74-99); Non-African American GFR(CKD) >90 (>60 ml/min/1.73 sqM); Potassium 3.3 mmol/L (3.5-5.1); Sodium 134 mmol/L (137-145); Total Bilirubin 0.8 mg/dL (0.2-1.3); Total Protein 6.7 g/dL (6.3-8.2)
[2023-01-26] MEDS ORDERED: DEXTROSE 5%-0.9% NACL 1,000 ML IV SCH (16:15)
[2023-01-26 19:08] VITALS: BP 128/73; PULSE 75; RESP 16; TEMP 97
[2023-01-26 20:14] LABS: Appearance,Urine Cloudy (Clear); Bilirubin,Urine 1+ (Negative); Blood,Urine Negative (Negative); Color,Urine Orange; Glucose,Urine (UA) 4+ (Negative); Ketones,Urine 4+ (Negative); Protein,Urine 1+ (Negative); Specific Gravity,Urine 1.026 (1.001-1.035)
[2023-01-26 20:15] LABS: Hyaline Casts,Urine 1 /lpf (0-2); Leukocyte Esterase,Urine Trace (Negative); Nitrite,Urine Negative (Negative); Squamous Epithelial Cell,Urine 1 /hpf (0-4); WBC,Urine 1 /hpf (0-5)
--- NOTE | 2023-01-31 13:22 | P.MSEPDOC ---
Presenting Problems - Arrival Data Date of Arrival on Unit: 01/26/23 Time of Arrival on Unit: 15:11 Mode of Transport: Ambulatory - Complaint OB-Reason for Admission/Chief Complaint: Acute Nausea/Vomiting Medical History - Information : 2 Para: 0 Abortions: Spontaneous or Elective: 1 Number of Living Children: 0 - Gestational Age Gestational Age by RAYMUNDO (wks/days): 31 Weeks and 1 Days Review of Systems - Review of Systems Constitutional: No problems Breast: No problems ENT: No problems Cardiovascular: No problems Respiratory: No problems Gastrointestinal: Diarrhea Genitourinary: No problems Musculoskeletal: No problems Neurological: No problems Skin: No problems Vital Signs - Temperature Temperature: 97.0 F Temperature Source: Oral - Pulse Right Sitting Brachial Pulse Rate: 75 Pulse Assessment Method: Automatic Cuff - Respirations Respiratory Rate: 16 Oxygen Delivery Method: Room Air O2 Sat by Pulse Oximetry: 100 - Blood Pressure Right Arm Sitting Blood Pressure: 128/73 Blood Pressure Mean: 91 Blood Pressure Source: Automatic Cuff Medical Screen Scoring - Assessment - Baby A Baseline FHR: 155 Heart Rate - NICHD Category: Category I (Normal) NST: Reactive Physician Notification - Physician Notified Physician Notified Date: 01/26/23 Physician Notified Time: 19:00 Physician: Jada Selby Order Received: Yes Maternal Triage Index - Maternal Triage Index Presenting for scheduled procedure w/no complaint: No - Stat/Priority 1 Stat Priority 1: No - Urgent/Priority 2 Urgent Priority 2: No - Prompt/Priority 3 Prompt Priority 3: No - Non-Urgent/Priority 4 Non-Urgent Priority 4: Yes Criteria Met for Priority 4: NVD Disposition - Disposition OB Disposition: Discharge to home Discharge Date: 01/26/23 Discharge Time: 19:00 I agree with the RN Medical Screening Exam: Yes Physician's MSE Comment: I have neither seen nor examined the patient Case reviewed; plan agreed upon as documented in EMR&OBIX.: Yes Diagnosis: MATERNAL CARE FOR PROBLEM, UNSP, THIRD * DO NOT USE *
== END 2023-01-26 19:00 | disposition home or self-care (01) ==
LOC: FBPOP 15:10
PROVIDERS: ATTEND Obstetrics & Gynecology
DX: O21.9 Vomiting of pregnancy, unspecified (principal); O36.8930 Maternal care for other specified fetal problems, third trimester, not applicable or unspecified; Z3A.31 31 weeks gestation of pregnancy
CPT/HCPCS: 59025; 96360; 80053; 85025; 81001; G0463; J1200; J0780; 99214

== ENCOUNTER 2023-02-07 13:12 | Outpatient (CLI) | payer OTHER ==
[2023-02-07] MEDS ORDERED: PROMETHAZINE SUPPOSITORY 25 MG SUPP RECTAL STA (14:00)
[2023-02-07] MEDS: LACTATED RINGERS 1,000 ML IV ONE ×3 (14:10→16:13)
[2023-02-07 15:30] LABS: ALT 21 U/L (4-34); AST 25 U/L (14-36); African American GFR (CKD) >90 (>60 ml/min/1.73 sqM); Albumin 3.5 g/dL (3.5-5.0); Alkaline Phosphatase 116 U/L (38-126); Anion Gap 13 mmol/L; Blood Urea Nitrogen 5 mg/dL (7-17); Calcium 8.8 mg/dL (8.4-10.2); Carbon Dioxide 16 mmol/L (22-30); Chloride 105 mmol/L (98-107); Glucose 115 mg/dL (74-99); Non-African American GFR(CKD) >90 (>60 ml/min/1.73 sqM); Potassium 3.7 mmol/L (3.5-5.1); Sodium 134 mmol/L (137-145); Total Bilirubin 0.7 mg/dL (0.2-1.3); Total Protein 6.5 g/dL (6.3-8.2)
[2023-02-07 17:18] VITALS: BP 114/78; PULSE 72; RESP 18; TEMP 97.2
--- NOTE | 2023-03-01 09:45 | P.MSEPDOC ---
Presenting Problems - Arrival Data Date of Arrival on Unit: 02/07/23 Time of Arrival on Unit: 13:14 Mode of Transport: Wheelchair - Complaint OB-Reason for Admission/Chief Complaint: Acute Nausea/Vomiting Medical History - Information : 2 Para: 1 Term: 1 : 0 Abortions: Spontaneous or Elective: 0 Number of Living Children: 1 - Gestational Age Gestational Age by RAYMUNDO (wks/days): 32 Weeks and 6 Days - History Complications: Hx. Substance Abuse Comment: thc use Review of Systems - Review of Systems Constitutional: Fatigue Breast: No problems ENT: No problems Cardiovascular: No problems Respiratory: No problems Gastrointestinal: No problems Genitourinary: No problems Musculoskeletal: No problems Neurological: No problems Skin: No problems Vital Signs - Temperature Temperature: 97.2 F Temperature Source: Temporal Artery Scan - Pulse Right Pulse Rate: 72 Pulse Assessment Method: Automatic Cuff - Respirations Respiratory Rate: 18 Oxygen Delivery Method: Room Air O2 Sat by Pulse Oximetry: 97 - Blood Pressure Right Arm Blood Pressure: 114/78 Blood Pressure Mean: 90 Blood Pressure Source: Automatic Cuff Medical Screen Scoring - Cervical Exam Dilation (cm): 0 Effacement (%): 0 Station: 0 Membranes: Intact - Uterine Contractions Frequency From (mins): 3 Frequency To (mins): 5 Duration From (seconds): 50 Duration To (seconds): 60 Intensity: Mild Resting: Soft to palpation - Assessment - Baby A Baseline FHR: 140 Heart Rate - NICHD Category: Category II (Indeterminate) NST: Reactive Physician Notification - Physician Notified Physician Notified Date: 02/07/23 Physician Notified Time: 16:23 Physician: Gina Young New Order Received: Yes (if cervix closed, discharge to home) - Notification Comment Comment: 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
== END 2023-02-07 16:50 | disposition home or self-care (01) ==
LOC: FBPOP 13:12
PROVIDERS: ATTEND Obstetrics & Gynecology
DX: O21.9 Vomiting of pregnancy, unspecified (principal); Z3A.32 32 weeks gestation of pregnancy
CPT/HCPCS: 59025; 96360; 96361; 80053; G0463; 99214

== ENCOUNTER 2023-02-08 10:50 | Outpatient (CLI) | payer OTHER ==
[2023-02-08] MEDS ORDERED: diphenhydrAMINE 50 MG/ML 1 ML VIAL IVP STA (11:18)
[2023-02-08] MEDS ORDERED: PROCHLORPERAZINE INJ 10 MG/2 ML VIAL IVP STA (11:18)
[2023-02-08] MEDS ORDERED: LACTATED RINGERS 1,000 ML IV SCH (11:30)
[2023-02-08] MEDS ORDERED: LIDOCAINE 5% PATCH TOPICAL SCH (12:00)
[2023-02-08 12:27] LABS: ALT 26 U/L (4-34); AST 33 U/L (14-36); African American GFR (CKD) >90 (>60 ml/min/1.73 sqM); Albumin 3.6 g/dL (3.5-5.0); Alkaline Phosphatase 110 U/L (38-126); Anion Gap 7 mmol/L; Blood Urea Nitrogen 4 mg/dL (7-17); Calcium 8.6 mg/dL (8.4-10.2); Carbon Dioxide 21 mmol/L (22-30); Chloride 105 mmol/L (98-107); Glucose 110 mg/dL (74-99); Non-African American GFR(CKD) >90 (>60 ml/min/1.73 sqM); Potassium 3.7 mmol/L (3.5-5.1); Sodium 133 mmol/L (137-145); Total Bilirubin 0.7 mg/dL (0.2-1.3); Total Protein 6.4 g/dL (6.3-8.2)
[2023-02-08 13:01] LABS: Appearance,Urine Cloudy (Clear); Bilirubin,Urine Negative (Negative); Blood,Urine Negative (Negative); Color,Urine Yellow; Glucose,Urine (UA) Negative (Negative); Ketones,Urine 4+ (Negative); Leukocyte Esterase,Urine Large (Negative); Mucus,Urine Many /hpf; Nitrite,Urine Negative (Negative); PH, Urine 6.5 (5.0-8.0); Protein,Urine 2+ (Negative); RBC,Urine 3 /hpf (0-5); Specific Gravity,Urine 1.029 (1.001-1.035); Squamous Epithelial Cell,Urine 19 /hpf (0-4); Urobilinogen,Urine <2.0 mg/dL (<2.0); WBC,Urine 11 /hpf (0-5)
[2023-02-08 14:52] VITALS: BP 133/76; PULSE 81; RESP 16; TEMP 98.3
--- NOTE | 2023-02-11 18:08 | P.MSEPDOC ---
Presenting Problems - Arrival Data Date of Arrival on Unit: 02/08/23 Time of Arrival on Unit: 10:50 Mode of Transport: Wheelchair - Complaint OB-Reason for Admission/Chief Complaint: Hyperemesis Medical History - Information : 2 Para: 1 Term: 0 : 0 Abortions: Spontaneous or Elective: 0 Number of Living Children: 1 - Gestational Age Gestational Age by RAYMUNDO (wks/days): 33 Weeks and 0 Days Review of Systems - Review of Systems Constitutional: No problems Breast: No problems ENT: No problems Cardiovascular: No problems Respiratory: No problems Gastrointestinal: No problems Genitourinary: No problems Musculoskeletal: No problems Neurological: No problems Skin: No problems Vital Signs - Temperature Temperature: 98.3 F Temperature Source: Temporal Artery Scan - Pulse Right Pulse Rate: 81 Pulse Assessment Method: Automatic Cuff - Respirations Respiratory Rate: 16 Oxygen Delivery Method: Room Air O2 Sat by Pulse Oximetry: 98 - Blood Pressure Right Arm Blood Pressure: 133/76 Blood Pressure Mean: 95 Blood Pressure Source: Automatic Cuff Medical Screen Scoring - Assessment - Baby A Baseline FHR: 140 Heart Rate - NICHD Category: Category I (Normal) NST: Reactive Physician Notification - Physician Notified Physician Notified Date: 02/08/23 Physician Notified Time: 11:12 Physician: Jada Selby Order Received: Yes Maternal Triage Index - Maternal Triage Index Presenting for scheduled procedure w/no complaint: No - Stat/Priority 1 Stat Priority 1: No - Urgent/Priority 2 Urgent Priority 2: No - Prompt/Priority 3 Prompt Priority 3: No - Non-Urgent/Priority 4 Non-Urgent Priority 4: Yes Criteria Met for Priority 4: Hyperemesis - Scheduled/Requesting Priority 5 Scheduled/Requesting Priority 5: No Disposition - Disposition OB Disposition: Discharge to home Discharge Date: 02/08/23 Discharge Time: 14:30 I agree with the RN Medical Screening Exam: Yes Physician's MSE Comment: I have neither seen nor examined the patient Case reviewed; plan agreed upon as documented in EMR&OBIX.: Yes Diagnosis: RELATED CONDITIONS, UNSPECIFIED, THIRD TRIMESTER
== END 2023-02-08 14:30 | disposition home or self-care (01) ==
LOC: FBPOP 10:50
PROVIDERS: ATTEND Obstetrics & Gynecology
DX: O21.1 Hyperemesis gravidarum with metabolic disturbance (principal); Z3A.33 33 weeks gestation of pregnancy
CPT/HCPCS: 59025; 96361; 96365; 96375; 80053; 81001; G0463; J1200; J0780; 99214

== ENCOUNTER 2023-02-27 17:55 | Outpatient (CLI) | payer OTHER ==
[2023-02-27 18:24] VITALS: BP 132/77; PULSE 75; RESP 18; TEMP 98.4
[2023-02-27 18:39] LABS: Appearance,Urine Cloudy (Clear); Bacteria,Urine Rare /hpf; Bilirubin,Urine Negative (Negative); Blood,Urine Negative (Negative); Color,Urine Yellow; Glucose,Urine (UA) Negative (Negative); Ketones,Urine 4+ (Negative); Leukocyte Esterase,Urine Moderate (Negative); Mucus,Urine Moderate /hpf; Nitrite,Urine Negative (Negative); PH, Urine 6.5 (5.0-8.0); Protein,Urine 1+ (Negative); RBC,Urine 3 /hpf (0-5); Squamous Epithelial Cell,Urine 15 /hpf (0-4); WBC,Urine 3 /hpf (0-5)
[2023-02-27] MEDS ORDERED: LACTATED RINGERS 1,000 ML IV ONE (18:45)
[2023-02-27] MEDS ORDERED: BETAMET ACET-BETAMETH SOD PHOS 6 MG/ML MDV IM SCH (20:30)
--- NOTE | 2023-03-01 09:48 | P.MSEPDOC ---
Presenting Problems - Arrival Data Date of Arrival on Unit: 02/27/23 Time of Arrival on Unit: 17:55 Mode of Transport: Wheelchair - Complaint OB-Reason for Admission/Chief Complaint: Hyperemesis Medical History - Information : 2 Para: 1 Term: 1 : 0 Abortions: Spontaneous or Elective: 0 Number of Living Children: 1 - Gestational Age Gestational Age by RAYMUNDO (wks/days): 35 Weeks and 5 Days Review of Systems - Review of Systems Constitutional: Fatigue Breast: No problems ENT: No problems Cardiovascular: No problems Respiratory: No problems Gastrointestinal: No problems Genitourinary: No problems Musculoskeletal: Muscle weakness Neurological: Dizziness Skin: No problems Vital Signs - Temperature Temperature: 98.4 F Temperature Source: Temporal Artery Scan - Pulse Right Sitting Pulse Rate: 75 Pulse Assessment Method: Automatic Cuff - Respirations Respiratory Rate: 18 Oxygen Delivery Method: Room Air O2 Sat by Pulse Oximetry: 98 - Blood Pressure Right Arm Sitting Blood Pressure: 132/77 Blood Pressure Mean: 95 Blood Pressure Source: Automatic Cuff Physician Notification - Physician Notified Physician Notified Date: 02/27/23 Physician Notified Time: 20:20 Physician: Gina Young - Notification Comment Comment: Dr. Young updated that patient has received a 1L bolus, u/a results reviewed, vital signs reviewed, category 1 FHT with a baseline of 155, contractions 2-6 minutes apart, patient sleeping through contractions. Cervical exam 2/50/-2 and remain unchaged after 1 hour. Patient to receive celstone, return in 24 hours, may be dsicharged home. Maternal Triage Index - Prompt/Priority 3 Prompt Priority 3: Yes Criteria Met for Priority 3: 35.5, hyperemesis, genet Disposition - Disposition OB Disposition: Discharge to home Discharge Date: 02/27/23 Discharge Time: 20:59 I agree with the RN Medical Screening Exam: Yes Case reviewed; plan agreed upon as documented in EMR&OBIX.: Yes Diagnosis: nausea and vomitting
== END 2023-02-27 21:00 | disposition home or self-care (01) ==
LOC: FBPOP 17:55
PROVIDERS: ATTEND Obstetrics & Gynecology
DX: O21.1 Hyperemesis gravidarum with metabolic disturbance (principal); Z3A.35 35 weeks gestation of pregnancy
CPT/HCPCS: 59025; 96365; 96372; 81001; G0463; J0702; 99214

== ENCOUNTER 2023-02-28 20:28 | Outpatient (CLI) | payer OTHER ==
[2023-02-28] MEDS ORDERED: BETAMET ACET-BETAMETH SOD PHOS 6 MG/ML MDV IM SCH (20:45)
[2023-02-28] MEDS ORDERED: LACTATED RINGERS 1,000 ML IV SCH (21:00)
[2023-02-28] MEDS ORDERED: ACETAMINOPHEN TAB 325 MG TAB PO STA (21:01)
[2023-02-28] MEDS ORDERED: ONDANSETRON 4 MG/2 ML VIAL IVP STA (21:01)
[2023-02-28 23:11] VITALS: BP 134/88; PULSE 97; RESP 17; TEMP 98.2
--- NOTE | 2023-03-01 09:20 | P.MSEPDOC ---
Presenting Problems - Arrival Data Date of Arrival on Unit: 02/28/23 Time of Arrival on Unit: 20:28 Mode of Transport: Wheelchair - Complaint OB-Reason for Admission/Chief Complaint: Acute Nausea/Vomiting, Celestone Injection Medical History - Information : 2 Para: 1 Term: 1 : 0 Abortions: Spontaneous or Elective: 0 Number of Living Children: 1 - Gestational Age Gestational Age by RAYMUNDO (wks/days): 35 Weeks and 6 Days - History Complications: Smoker, Hx. Substance Abuse Comment: THC use. Review of Systems - Review of Systems Constitutional: No problems Breast: No problems ENT: No problems Cardiovascular: No problems Respiratory: No problems Gastrointestinal: No problems Genitourinary: No problems Musculoskeletal: No problems Neurological: No problems Skin: No problems Vital Signs - Temperature Temperature: 98.2 F Temperature Source: Temporal Artery Scan - Pulse Right Brachial Pulse Rate: 97 Pulse Assessment Method: Automatic Cuff - Respirations Respiratory Rate: 17 Oxygen Delivery Method: Room Air O2 Sat by Pulse Oximetry: 98 - Blood Pressure Right Arm Blood Pressure: 134/88 Blood Pressure Mean: 103 Blood Pressure Source: Automatic Cuff Medical Screen Scoring - Assessment - Baby A Baseline FHR: 140 Heart Rate - NICHD Category: Category I (Normal) NST: Reactive Physician Notification - Physician Notified Physician Notified Date: 02/28/23 Physician Notified Time: 20:58 Physician: Gina Young Order Received: Yes - Notification Comment Comment: Dr. Young given report on pt. aware of pt hx. Pt in for second dose of. celestone but presented to triage tearful and vomiting. Cat 1 FHTs, contractions 1-5. minutes. Pt appears relaxed during contractions. Orders recieved to administer 1L. lactated ringers, 4mg IVP zofran, 650mg tylenol, and to administer second dose of. celestone. To discharge patient following medication administration. Maternal Triage Index - Non-Urgent/Priority 4 Non-Urgent Priority 4: Yes Criteria Met for Priority 4: Nausea/vomiting, second dose of celestone. Disposition - Disposition OB Disposition: Discharge to home Discharge Date: 02/28/23 Discharge Time: 22:45 I agree with the RN Medical Screening Exam: Yes Case reviewed; plan agreed upon as documented in EMR&OBIX.: Yes Diagnosis: contractions
== END 2023-02-28 22:45 | disposition home or self-care (01) ==
LOC: FBPOP 20:28
PROVIDERS: ATTEND Obstetrics & Gynecology
DX: O60.03 Preterm labor without delivery, third trimester (principal); O21.9 Vomiting of pregnancy, unspecified; Z3A.35 35 weeks gestation of pregnancy
CPT/HCPCS: 59025; 96361; 96374; G0463; J2405; J0702; 99214

== ENCOUNTER 2023-03-01 19:37 | Inpatient (IN) | payer OTHER ==
[2023-03-01] MEDS: LACTATED RINGERS 1,000 ML IV SCH (20:50)
[2023-03-01] MEDS ORDERED: TRANEXAMIC 1,000 MG/100ML-NACL 1,000 MG in EMPTY BAG 1 BAG IV PRN (21:00)
[2023-03-01] MEDS ORDERED: LIDOCAINE 0.5% (PF) 5 MG/ML (50 ML SDV) SQ PRN (21:00)
[2023-03-01] MEDS ORDERED: CARBOPROST TROMETHAMINE 250 MCG/ML 1 ML AMP IM PRN (21:00)
[2023-03-01] MEDS ORDERED: OXYTOCIN 10 UNIT/ML 1 ML VIAL IM PRN (21:00)
[2023-03-01] MEDS ORDERED: METHYLERGONOVINE 0.2 MG/ML 1 ML AMP IM PRN (21:00)
[2023-03-01] MEDS ORDERED: TERBUTALINE 1 MG/ML VIAL SQ PRN (21:00)
[2023-03-01] MEDS ORDERED: miSOPROStoL 200 MCG TAB PO PRN (21:00)
[2023-03-01] MEDS ORDERED: ONDANSETRON 4 MG/2 ML VIAL IVP PRN (21:02)
[2023-03-01 21:21] LABS: Basophils % (A) 0 %; Eosinophils % (A) 0 %; HGB 12.2 gm/dL (11.4-16.0); Lymphocytes # (A) 1.6 k/uL (1.0-4.8); Lymphocytes % (A) 11 %; MCHC 32.9 g/dL (31.0-37.0); Mean Platelet Volume 8.1; Monocytes # (A) 0.9 k/uL (0-1.0); Monocytes % (A) 6 %; Neutrophils # (A) 11.5 k/uL (1.3-7.7); Neutrophils % (A) 80 %; Platelet Count 354 k/uL (150-450); Poikilocytosis Slight; RBC 4.35 m/uL (3.80-5.40); RDW 15.3 % (11.5-15.5); WBC 14.3 k/uL (3.8-10.6)
[2023-03-01] MEDS ORDERED: PENICILLIN G POTASSIUM 5,000,000 UNIT in DEXTROSE 5% IN WATER 100 ML IVPB STA ×2 (21:27)
[2023-03-02] MEDS: PENICILLIN G POTASSIUM 2,500,000 UNIT in DEXTROSE 5% IN WATER 100 ML IVPB SCH ×10 (02:14→21:08)
[2023-03-02] MEDS: NALBUPHINE 10 MG/ML (10 ML MDV) IV PRN ×2 (02:32→06:20)
[2023-03-02] MEDS: LACTATED RINGERS 1,000 ML IV SCH ×2 (06:21→21:10)
[2023-03-02] MEDS ORDERED: OXYTOCIN 30 UNITS/500 ML NS 30 UNIT in SALINE 1 500ML.BAG IV SCH (08:00)
--- NOTE | 2023-03-02 11:03 | P.HPOB ---
History of Present Illness H&P Date: 03/02/23 Chief Complaint: Leakage of fluid Ms. Bay is a 27 year old at 36 weeks and 1 day with EDC of 03/29/2023 (by LMP consistent with 9 week US) who presented to labor and delivery with PPROM at 2100 with clear amniotic fluid noted. The patient is genet every 5-10 minutes overnight on her own. Antibiotics have been started for GBS prophylaxis. The fetus measured in the 91%ile at 32 week US. The has also been complicated by hyperemesis gravidarum compounded by cyclic vomiting syndrome secondary to chronic marijuana use. Obstetric history: 1 FTVD, no complications Maternal work-up: blood type O positive, RUBELLA NON-IMMUNE, VDRL, non-reactive, HBsAg negative, HIV negative, gonorrhea negative, chlamydia negative, 1 hour GTT 135. Past medical history: pneumonia, anemia Past surgical history: ankle surgery 2017 Past Medical History Past Medical History: No Reported History History of Any Multi-Drug Resistant Organisms: None Reported Past Surgical History: Orthopedic Surgery Additional Past Surgical History / Comment(s): R ankle Past Anesthesia/Blood Transfusion Reactions: No Reported Reaction Additional Past Anesthesia/Blood Transfusion Reaction / Comment(s): no anesthesia Past Psychological History: ADD/ADHD, Anxiety Smoking Status: Former smoker Past Alcohol Use History: None Reported Past Drug Use History: None Reported Additional Drug Use History / Comment(s): Pt reports quitting smoking and MJ use earlier in the - Past Family History Mother Family Medical History: No Reported History Father Family Medical History: No Reported History Medications and Allergies Home Medications Medication Instructions Recorded Confirmed Type Vit No.179/Iron/Folic 1 tab PO ONCE 02/28/23 03/01/23 History [ Tablet] Allergies Allergy/AdvReac Type Severity Reaction Status Date / Time No Known Allergies Allergy Verified 03/01/23 19:52 Exam Vital Signs Temp Pulse Resp BP Pulse Ox 03/01/23 21:02 97.9 F 97 16 140/89 99 Intake and Output 03/01/23 03/02/23 03/02/23 22:59 06:59 14:59 Intake Total 125 1000 Balance 125 1000 Intake: IV 125 1000 Other: Weight 92.986 kg Focused physical exam is performed. This is a healthy-appearing in no apparent distress. Breathing is non-labored. Abdomen is gravid and non-tender. Cervical exam is deferred at this time, prior examination revealed a cervix that was 2 cm, long, and high. Extremities are non-tender and non-edematous. heart tones are category 1 and tocometer is graphing irregular contractions every 5-10 minutes. Results Result Diagrams: 03/01/23 20:54 Abnormal Lab Results - Last 24 Hours (Table) 03/01/23 Range/Units 20:54 WBC 14.3 H (3.8-10.6) k/uL Neutrophils # 11.5 H (1.3-7.7) k/uL Assessment and Plan Assessment: 27 year old at 36 weeks and 1 day with PPROM at 2100 on 03/01/23 Plan: Admit, GBS ppx with IV antibiotics, pitocin per protocol, NPO, mIVF. Continious EFM and tocometer. Close monitoring of patient. Epidural prn. Time with Patient: Less than 30 (10 minutes)
[2023-03-02] MEDS ORDERED: SODIUM CHLORIDE 0.9% 250 ML BAG ONE (13:53)
[2023-03-02] MEDS ORDERED: fentaNYL (PF) 50 MCG/ML 5 ML AMP ONE (13:53)
[2023-03-02] MEDS ORDERED: ROPIVACAINE 5 MG/ML 30 ML VIAL ONE (13:53)
[2023-03-02] MEDS ORDERED: diphenhydrAMINE 25 MG CAP PO PRN (14:59)
[2023-03-02] MEDS ORDERED: diphenhydrAMINE 50 MG CAP PO PRN (14:59)
[2023-03-02] MEDS ORDERED: SIMETHICONE 80 MG CHEWABLE PO PRN (14:59)
[2023-03-02] MEDS ORDERED: BENZOCAINE/MENTHOL SPRAY 1 GM/SPRAY AEROSOL TOPICAL PRN (14:59)
[2023-03-02] MEDS ORDERED: HYDROCORTISONE 2.5% RECTAL CREAM 30 GM TUBE RECTAL PRN (14:59)
[2023-03-02] MEDS ORDERED: diphenhydrAMINE 50 MG/ML 1 ML VIAL IVP PRN ×2 (14:59)
[2023-03-02] MEDS ORDERED: LANOLIN CREAM 5 GM TUBE TOPICAL PRN (14:59)
[2023-03-02] MEDS ORDERED: ZOLPIDEM 5 MG TAB PO PRN (14:59)
--- NOTE | 2023-03-02 14:59 | P.PROBDLV ---
Vaginal Delivery Note - . Vaginal Delivery Note: DATE OF SERVICE: 03/02/2023 PROCEDURE: Normal Vaginal Delivery ATTENDING: Dr. Jada Selby MD ESTIMATED BLOOD LOSS: 50 mL FINDINGS: VMI, Apgars 8/9. Weight 6 pounds and 0 ounces (2710 grams) PROCEDURE: Ms. Bay is a 27 year old at 36 weeks and 1 day presenting to labor and delivery for PPROM. IV antibiotics were started for GBS prophylaxis and pitocin augmentaiton was started. The has been complicated by hyperemesis. For further details, please review the admitting H&P. The patient was completely dilated at 1431. A viable male was delivered at 1442. The infant was placed on the maternal abdomen and bulb suctioned. Cord was clamped and cut after a 30-second delay. The was handed off to the pediatric team. Placenta was delivered whole with gentle cord traction at 1444. Oxytocin was started to facilitate uterine tone. Uterine fundus was found to be firm and below the umbilicus upon fundal massage. Thorough examination of the cervix, vagina, periurethral area, and perineum revealed no lacerations. The patient is stable and allowed to begin the bonding process. Patient stable .
[2023-03-02] MEDS: ACETAMINOPHEN TAB 325 MG TAB PO PRN ×2 (15:48→22:35)
[2023-03-02] MEDS: SENNOSIDES-DOCUSATE SODIUM 1 EACH TAB PO SCH (20:16)
[2023-03-02] MEDS: IBUPROFEN 600 MG TAB PO PRN (20:17)
[2023-03-02] MEDS ORDERED: CITRIC ACID-SODIUM CITRATE 15 ML CUP PO STA (22:30)
[2023-03-03] MEDS ORDERED: CALCIUM CARBONATE 500 MG CHEWABLE PO PRN (00:14)
[2023-03-03] MEDS: IBUPROFEN 600 MG TAB PO PRN ×3 (02:04→22:06)
[2023-03-03 07:15] LABS: Basophils % (A) 0 %; Eosinophils # (A) 0.1 k/uL (0-0.7); Eosinophils % (A) 1 %; HCT 31.7 % (34.0-46.0); HGB 10.8 gm/dL (11.4-16.0); Lymphocytes # (A) 1.4 k/uL (1.0-4.8); Lymphocytes % (A) 14 %; MCH 27.9 pg (25.0-35.0); MCHC 33.9 g/dL (31.0-37.0); MCV 82.3 fL (80.0-100.0); Monocytes # (A) 0.7 k/uL (0-1.0); Monocytes % (A) 6 %; Neutrophils # (A) 8.1 k/uL (1.3-7.7); Neutrophils % (A) 78 %; Platelet Count 249 k/uL (150-450); Poikilocytosis Slight; RBC 3.86 m/uL (3.80-5.40); RDW 15.2 % (11.5-15.5); WBC 10.5 k/uL (3.8-10.6)
[2023-03-03] MEDS: SENNOSIDES-DOCUSATE SODIUM 1 EACH TAB PO SCH ×2 (08:12→20:08)
--- NOTE | 2023-03-03 09:03 | P.DS ---
Providers Date of admission: 03/01/23 20:05 Expected date of discharge: 03/03/23 Attending physician: Jada Selby MD Primary care physician: Stated None Hospital Course: This is a 27 year old now PPD#1 s/p after PPROM at 36 weeks. She is doing well this morning and desires discharge home. She is eating and drinking, ambulating without difficulty, voiding normall. Lochia is light. She denies fevers, chills, chest pain, shortness of breathing, pain/swelling in legs, vomiting. restriction of pelvic rest for 6 weeks discussed with the patient. She is encouraged to call the office for any fevers, chills, heavy bleeding, breast complaints, or any other concerns. She will follow up in the office in 6 weeks for visit. All questions answered. Assessment: 27 year old PPD#1 s/p Patient Condition at Discharge: Good Plan - Discharge Summary New Discharge Prescriptions: No Action Vit No.179/Iron/Folic [ Tablet] 1 tab PO ONCE Discharge Medication List Vit No.179/Iron/Folic [ Tablet] 1 tab PO ONCE 02/28/23 [History]
[2023-03-03] MEDS: PROCHLORPERAZINE 5 MG TAB PO PRN ×2 (13:32→20:08)
[2023-03-03] MEDS: ACETAMINOPHEN TAB 325 MG TAB PO PRN ×2 (20:07→23:50)
[2023-03-04] MEDS: IBUPROFEN 600 MG TAB PO PRN (03:36)
[2023-03-04] MEDS: SENNOSIDES-DOCUSATE SODIUM 1 EACH TAB PO SCH (07:43)
[2023-03-04] MEDS: ACETAMINOPHEN TAB 325 MG TAB PO PRN (07:43)
[2023-03-04 07:51] VITALS: BP 117/75; PULSE 67; RESP 18; TEMP 97.7
[2023-03-04] MEDS: PROCHLORPERAZINE 5 MG TAB PO PRN (08:10)
== END 2023-03-04 09:50 | disposition home or self-care (01) | DRG 560 ==
LOC: FBPOP 19:37 → 4FBP 20:05
PROVIDERS: ADMIT Obstetrics & Gynecology; ATTEND Obstetrics & Gynecology
PROC: 10E0XZZ Delivery of Products of Conception, External Approach (ICD-10-PCS; principal; 2023-03-01)
PROC: 3E033VJ Introduction of Other Hormone into Peripheral Vein, Percutaneous Approach (ICD-10-PCS; 2023-03-01)
DX: O42.913 Preterm premature rupture of membranes, unspecified as to length of time between rupture and onset of labor, third trimester (principal); O21.0 Mild hyperemesis gravidarum; O99.02 Anemia complicating childbirth; D64.9 Anemia, unspecified; T40.721A Poisoning by synthetic cannabinoids, accidental (unintentional), initial encounter; F12.90 Cannabis use, unspecified, uncomplicated; F90.9 Attention-deficit hyperactivity disorder, unspecified type; F41.9 Anxiety disorder, unspecified; O99.324 Drug use complicating childbirth; O99.344 Other mental disorders complicating childbirth; Z3A.36 36 weeks gestation of pregnancy; Z37.0 Single live birth; Z87.891 Personal history of nicotine dependence; Z87.01 Personal history of pneumonia (recurrent)
CPT/HCPCS: 59025; 84112; 85025; 86850; 86900; 86901; 99213

== ENCOUNTER → 2023-05-06 | Outpatient (CLI) | payer OTHER ==
[2023-05-06 16:47] LABS: Basophils # (A) 0.05 X 10*3/uL (0.00-0.10); Basophils % (A) 0.6 %; Eosinophils # (A) 0.26 X 10*3/uL (0.04-0.35); Eosinophils % (A) 3.1 %; HCT 36.1 % (37.2-46.3); HGB 11.1 g/dL (12.0-15.0); Lymphocytes # (A) 1.22 X 10*3/uL (0.90-5.00); Lymphocytes % (A) 14.6 %; MCH 25.5 pg (27.0-32.0); MCHC 30.7 g/dL (32.0-37.0); MCV 82.8 FL (80.0-97.0); Mean Platelet Volume 10.8 FL (9.5-12.2); Monocytes # (A) 0.54 X 10*3/uL (0.20-1.00); Monocytes % (A) 6.5 %; NRBC Per 100 WBC 0 X 10*3/uL (0.00-0.01); Neutrophils # (A) 6.25 X 10*3/uL (1.80-7.70); Platelet Count 307 X 10*3/uL (140-440); RBC 4.36 X 10*6/uL (4.10-5.20); RDW 14.6 % (11.5-14.5); WBC 8.34 X 10*3/uL (4.50-10.00)
== END | disposition home or self-care (01) ==
LOC: LABPAT 09:46
PROVIDERS: ATTEND Obstetrics & Gynecology
DX: Z30.2 Encounter for sterilization (principal)
CPT/HCPCS: 85025

== ENCOUNTER 2023-05-10 07:41 | Day surgery (SDC) | payer OTHER ==
[2023-05-04 14:24] VITALS: BMI 28.4
--- NOTE | 2023-05-06 16:45 | P.HPIHPCON ---
History of Present Illness H&P Date: 05/06/23 Chief Complaint: Scheduled surgery Ms. Bay is a 27 year old who presents for permanent sterilization and risk reduction via laparoscopic bilateral salpingectomy. Consent for Procedure: I have explained the operation/procedure to the patient, including the risks, benefits, side effects, alternative therapies (including not receiving the proposed treatment or service), the likelihood of the patient achieving his/her goals, and potential recuperation problems for the procedure/sedation/analgesia, as well as any blood products, if indicated. I also explained to the patient the risks, benefits and side effects of the alternatives, as well as the risks related to not receiving the proposed procedure, care, treatment, or services. Past Medical History Past Medical History: No Reported History History of Any Multi-Drug Resistant Organisms: None Reported Past Surgical History: Orthopedic Surgery Additional Past Surgical History / Comment(s): Right ankle surgery. Past Anesthesia/Blood Transfusion Reactions: No Reported Reaction Additional Past Anesthesia/Blood Transfusion Reaction / Comment(s): no anesthesia Past Psychological History: ADD/ADHD, Anxiety Smoking Status: Current some day smoker Past Alcohol Use History: None Reported Additional Past Alcohol Use History / Comment(s): Quit smoking about 8 months ago. Will have an occasional cigarette. Past Drug Use History: None Reported - Past Family History Mother Family Medical History: No Reported History Father Family Medical History: No Reported History Medications and Allergies Home Medications Medication Instructions Recorded Confirmed Type No Known Home Medications 05/04/23 05/04/23 History Allergies Allergy/AdvReac Type Severity Reaction Status Date / Time No Known Allergies Allergy Verified 05/04/23 13:56 Surgical - Exam - General well developed, well nourished, no distress - Respiratory normal expansion, normal respiratory effort, clear to auscultation - Cardiovascular Rhythm: regular - Abdomen Abdomen: soft, non tender Assessment and Plan Assessment: 27 year old presenting for permanent sterilization and risk reduction Plan: Risks, benefits, and alternatives to Laparoscopic Bilateral Salpingectomy were discussed with the patient including risk of bleeding, infection, damage to surrounding structures, and post-operative VTE. The patient understands that this procedure is non-reversible and she will never be able to get again without IVF. All questions answered. Proceed with surgery as scheduled. Time with Patient: Less than 30
[~2023-05-10 07:41] MED LIST changes: -DEXAMETHASONE SOD PHOSPHATE 10 MG/ML 1 ML VIAL IV ONE; +DEXAMETHASONE SOD PHOSPHATE 4 MG/ML 1 ML VIAL IV ONE; -HYDROcodone/APAP 5-325MG 1 EACH TAB PO PRN; -HYDROmorphone 1 MG/ML 1 ML SYRINGE IVP PRN; +LIDOCAINE 1% (10MG/ML) FOR IV START INTRADERMA PRN; -LIDOCAINE 1% 20 ML VIAL (10MG/ML) FOR IV START INTRADERMA ONE; -LIDOCAINE 1% INJ 10MG/ML (20 ML MDV) ONE; -MIDAZOLAM 2 MG/2 ML VIAL IV PRN; -MIDAZOLAM 2 MG/2 ML VIAL ONE; -ONDANSETRON 4 MG/2 ML VIAL IVP PRN; -PROPOFOL 10 MG/ML 20 ML VIAL IV ONE; +Pre Op ABX Message 1 EACH MISC MISCELLANE ONE; -ROPIVACAINE 5 MG/ML 30 ML VIAL MISCELLANE ONE; -SCOPOLAMINE 1.5MG/72HR PATCH TRANSDERM ONE; -SUCCINYLCHOLINE CHLORIDE 100 MG/5 ML SYR IV ONE; -ceFAZolin IN SWFI 2 GM/20 ML SYRINGE IVP ONE; +droPERidol 5 MG/2 ML VIAL IVP ONE; -fentaNYL (PF) 50 MCG/ML 2 ML AMP IV PRN; -fentaNYL (PF) 50 MCG/ML 2 ML AMP ONE
[2023-05-10] MEDS ORDERED: PROPOFOL 10 MG/ML 20 ML VIAL IV ONE (09:31)
[2023-05-10] MEDS ORDERED: NEOSTIGMINE 1 MG/ML 10 ML VIAL ONE (09:31)
[2023-05-10] MEDS ORDERED: ROCURONIUM 10 MG/ML (5 ML VIAL) IV ONE (09:31)
[2023-05-10] MEDS ORDERED: SUCCINYLCHOLINE CHLORIDE 200 MG/10 ML VIAL IV ONE (09:31)
[2023-05-10] MEDS ORDERED: LIDOCAINE 1% INJ 10MG/ML (20 ML MDV) ONE (09:31)
[2023-05-10] MEDS ORDERED: MIDAZOLAM 2 MG/2 ML VIAL ONE (09:31)
[2023-05-10] MEDS ORDERED: fentaNYL (PF) 50 MCG/ML 2 ML AMP ONE (09:31)
[2023-05-10] MEDS ORDERED: GLYCOPYRROLATE 0.2 MG/ML 2 ML VIAL ONE (09:31)
[2023-05-10] MEDS ORDERED: .MORPHINE SULFATE (INJ) 10 MG/ML SYRINGE ONE (09:31)
[2023-05-10] MEDS ORDERED: KETOROLAC 15 MG/ML 1 ML VIAL ONE (09:31)
[2023-05-10] MEDS ORDERED: LACTATED RINGERS 1,000 ML IV ONE ×2 (09:35→10:56)
[2023-05-10] MEDS ORDERED: BUPIVACAINE (PF) 0.25% 30 ML VIAL SQ ONE ×2 (10:01→10:54)
[2023-05-10] MEDS ORDERED: SODIUM CHLORIDE 0.9% 50 ML with ceFAZolin 2,000 MG IV ONE ×2 (10:29)
[2023-05-10] MEDS ORDERED: SIMETHICONE 80 MG CHEWABLE PO PRN (11:18)
[2023-05-10] MEDS ORDERED: METOCLOPRAMIDE 5 MG/ML 2 ML VIAL IVP PRN (11:18)
[2023-05-10] MEDS ORDERED: ONDANSETRON 4 MG/2 ML VIAL IVP PRN (11:18)
[2023-05-10] MEDS ORDERED: KETOROLAC 15 MG/ML 1 ML VIAL IVP PRN (11:18)
--- NOTE | 2023-05-10 11:18 | P.OP ---
Date of Procedure: 05/10/23 Preoperative Diagnosis: Desires permanent sterilization and risk reduction Postoperative Diagnosis: Same Procedure(s) Performed: Miniature Laparotomy with Bilateral Salpingectomy Implants: None Anesthesia: VIRGIL Surgeon: Jada Selby Estimated Blood Loss (ml): 50 IV fluids (ml): 500 Urine output (ml): 0 Pathology: other (bilateral fallopian tubes) Condition: stable Disposition: floor Indications for Procedure: Ms. Bay is a 27 year old who presents for permanent sterilization and risk reduction. The risks, benefits, and alternatives to laparoscopic bilateral salpingectomy were discussed with the patient including risk of bleeding, infection, damage to surrounding structures including bladder/bowels/ureters, need for laparotomy, and post-operative VTE. The patient understands that this procedure is non-reversible and she will never again be able to get without the assistance of IVF. The patient understands these risks and desires to proceed with surgery as scheduled Operative Findings: Subcutaneous CO2 insufflation noted, unable to get into the peritoneum. Decision was made to proceed with a mini-laparotomy. Normal-appearing uterus, bilateral fallopian tubes, and ovaries. Description of Procedure: Patient was taken to the OR with IV fluid running and pneumatic compression stockings on both legs. General anesthesia was obtained without difficulty. The patient was placed in the dorsal lithotomy position with Rajan-type stirrups with knees bent at 30 degree angles. Examination under anesthesia revealed a no rmal-sized, anteverted uterus. The patient as prepared and draped. The bladder was emptied. A speculum was placed into the vagina. The anterior lip of the cervix was grasped with a single-toothed tenaculum. A uterine manipulator was introduced. A horizontal skin incision was made at the umbilical fold. The periumbilical skin was manually elevated. The Veress needle was introduced into the peritoneal cavity at a straight angle without difficulty. A saline drop test was performed to validate intraperitoneal placement. The pneumoperitoneum was established with CO2 gas to a pressure of 15mmHg. A 5mm trocar was inserted into the abdomen under direct laparoscopic visualization. At this time, insufflation of the subcutaenous layer was noted and even the extra long trocar was not long enough to penetrate through the insufflated subcutaenous layer. A left upper quadrant incision was made and the trocar was inserted at this site with similar insufflation of the subcutaenous layer noted. At this time, the decision was made to complete the case via a miniature laparotomy. Anesthesia dosed the patient with two grams of Ancef at this time for infection prophylaxis. A very small Pfannenstiel skin incision was made with the scalpel. The incision was carried down to the fascia. The fascia was incised and extended laterally with Ramos scissors. The superior aspect and inferior aspects of the fascia were bluntly dissected from the underlying rectus muscle. Excellent hemostasis was achieved with the bovie. The rectus muscle was in the midline down to the level of the pubic symphysis. Pre-peritoneal fatty tissue was bluntly dissected to expose the peritoneum. The peritoneum was found to be free of adherent bowel and entered sharply with Ramos scissors. Retractors were placed to protect the bowel and bladder. Kimmy clamps were used to graps bilateral uterine cornua. The right fallopian tube was walked back to the fimbriated end. The ampulla of the fallopian tube was grasped with a Stanford. The LigaSure device was used to sequentially cauterize and cut the fallopian tube from the fimbriated end to the level of the uterine cornua. This process was repeated on the left side. Good hemostasis was again noted. At this time,the fascial layer was closed with a 0-Vicryl suture. The subcutaneous tissue was reapproximated with 2-0 Chromic Gut. The skin was closed with 4-0 Monocryl in a subcuticular fashion. All the counts were correct times two. The patient was taken to the recovery room in a stable condition.
[2023-05-10] MEDS: HYDROmorphone 0.5 MG/0.5 ML SYRINGE IVP PRN ×2 (11:50→12:08)
[2023-05-10] MEDS: ACETAMINOPHEN TAB 325 MG TAB PO PRN ×2 (13:14→19:34)
[2023-05-10] MEDS: IBUPROFEN 600 MG TAB PO PRN (23:31)
[2023-05-11] MEDS: ACETAMINOPHEN TAB 325 MG TAB PO PRN (04:37)
[2023-05-11] MEDS: IBUPROFEN 600 MG TAB PO PRN (06:38)
[2023-05-11 07:59] LABS: Basophils % (A) 0 %; Eosinophils # (A) 0.1 k/uL (0-0.7); Eosinophils % (A) 1 %; HCT 29.6 % (34.0-46.0); HGB 9.6 gm/dL (11.4-16.0); Hypochromasia Slight; Lymphocytes % (A) 31 %; MCH 26.3 pg (25.0-35.0); MCHC 32.4 g/dL (31.0-37.0); MCV 81.2 fL (80.0-100.0); Mean Platelet Volume 8.3; Monocytes # (A) 0.4 k/uL (0-1.0); Monocytes % (A) 7 %; Neutrophils # (A) 3.9 k/uL (1.3-7.7); Neutrophils % (A) 60 %; Platelet Count 212 k/uL (150-450); RBC 3.65 m/uL (3.80-5.40); RDW 14.9 % (11.5-15.5); WBC 6.5 k/uL (3.8-10.6)
[2023-05-11 08:27] VITALS: BP 105/56; PULSE 68; RESP 16; TEMP 98.1
--- NOTE | 2023-05-11 08:40 | P.DS ---
Providers Date of admission: 05/11/2023 Expected date of discharge: 05/11/23 Attending physician: Jada Selby MD Primary care physician: [facility] Course: Ms. Bay is a 27 year old POD#1 s/p Mini Lap with Bilateral Salpingectomy. The patient is doing well this morning and had no acute events overnight. She has no complaints this morning. She reports voiding without difficulty, ambulating, and eating/drinking without nausea or vomiting. Has not yet passed flatus but has good bowel sounds and feels as though "she is about to pass gas." She denies chest pain, shortness of breathing, fevers, or chills overnight. She denies pain or swelling in the legs. Postoperative restrictions are reviewed with the patient including no lifting heavier than 15 pounds for 6 weeks. The patient is encouraged to call the office if she experiences any heavy bleeding, foul-smelling discharge, or any if she has any other concerns. She will follow up in the office with in 2 weeks for postoperative exam. She will go home with 18 tables of Oxycodone IR 5mg along with Motrin and Tylenol. All questions are answered. Assessment: 27 year old POD#1 s/p Mini Lap with bilateral salpingectomy Patient Condition at Discharge: Good Plan - Discharge Summary Discharge Rx Participant: No New Discharge Prescriptions: New oxyCODONE HCL [Roxicodone] 5 mg PO Q6HR PRN 3 Days #12 tab PRN Reason: Breakthrough Pain Acetaminophen Tab [Tylenol] 650 mg PO Q6H PRN #30 tab PRN Reason: Mild Pain (Scale 1 To 3) Ferrous Sulfate [Iron (65 MG Elemental)] 325 mg PO DAILY #30 tab Ibuprofen [Motrin] 600 mg PO Q6HR PRN #30 tab PRN Reason: Mild Pain (Scale 1 To 3) Discharge Medication List Acetaminophen Tab [Tylenol] 650 mg PO Q6H PRN #30 tab 05/11/23 [Rx] Ferrous Sulfate [Iron (65 MG Elemental)] 325 mg PO DAILY #30 tab 05/11/23 [Rx] Ibuprofen [Motrin] 600 mg PO Q6HR PRN #30 tab 05/11/23 [Rx] oxyCODONE HCL [Roxicodone] 5 mg PO Q6HR PRN 3 Days #12 tab 05/11/23 [Rx] Follow up Appointment(s)/Referral(s): Jada Selby MD [STAFF PHYSICIAN] - 2 Weeks Activity/Diet/Wound Care/Special Instructions: Postoperative Instructions 1. No heavy lifting or straining (exercising) until after 6 week checkup. 2. Do not resume sexual relations for 6 weeks or longer if uncomfortable. 3. Keep abdominal incision clean and dry: You may wear a dressing if more comfortable. 4. Keep any areas repaired with stitches clean and dry. 5. Call the office, , within the next week to make appointment for your 2 week checkup 6. Report any of the following occurrences to the doctor promptly: a. Heavy, excessive bleeding b. Chills, fever c. Burning or frequency of urination d. Pain or redness around the incisions Discharge Disposition: HOME SELF-CARE
[2023-05-11] MEDS ORDERED: ACETAMINOPHEN TAB 325 MG TAB PO PRN (11:19)
== END 2023-05-11 10:14 | disposition home or self-care (01) ==
LOC: OR 07:41 → 4FBP 11:06 → OR 05-11 10:14
PROVIDERS: ATTEND Obstetrics & Gynecology
DX: Z30.2 Encounter for sterilization (principal); F90.9 Attention-deficit hyperactivity disorder, unspecified type; F41.9 Anxiety disorder, unspecified; K21.9 Gastro-esophageal reflux disease without esophagitis; Z87.891 Personal history of nicotine dependence; Z96.661 Presence of right artificial ankle joint
CPT/HCPCS: 81025; 85025; 88302; 58661; J1100; J2405; J0690; J1885; J1170; J0665